=== PATIENT | male | born 1965 | race African-American/Black ===

== ENCOUNTER 2016-10-12 09:03 | Day surgery (SDC) | payer BC, MEDICARE ==
[2016-10-05 11:42] LABS: HEMATOCRIT 37.6 % (37.9-51.0); HEMOGLOBIN 12.6 g/dL (13.5-17.0); HGB HCT DIFFERENCE 0.2; MEAN CORPUSCULAR HGB CONC 33.6 g/dL (32.0-36.0); MEAN CORPUSCULAR VOLUME 83 fl (80-97); RED BLOOD COUNT 4.51 10^6/uL (4.35-5.55); RED CELL DISTRIBUTION WIDTH 13.7 % (11.5-14.0); WHITE BLOOD COUNT 4.9 10^3/uL (4.0-10.5)
[2016-10-05 12:03] LABS: ANION GAP 8 (5-19); BLOOD UREA NITROGEN 19 mg/dL (7-20); CALCIUM 9.2 mg/dL (8.4-10.2); CARBON DIOXIDE 29 mmol/L (22-30); CHLORIDE 107 mmol/L (98-107); CREATININE RESULT 1.23 mg/dL (0.52-1.25); GLUCOSE 80 mg/dL (75-110); POTASSIUM 4.5 mmol/L (3.6-5.0); SODIUM 144.3 mmol/L (137-145)
--- NOTE | 2016-10-05 19:13 | EKG REPORT ---
SEVERITY:- NORMAL ECG - SINUS RHYTHM : Confirmed by: Redd Paz MD 05-Oct-2016 19:13:07
[~2016-10-12 09:03] MED LIST: BUPIVACAINE HCL 0.25 % INJ/PF (2.5 MG/1 ML) 30 ML VIAL ONE; CEFAZOLIN 1 GM/D5W RTU 1 GM/50 ML RTUPB IV PRN; GLYCOPYRROLATE INJ 0.4 MG/2 ML VIAL ONE; LACTATED RINGERS 1000 ML IV PRN; LIDOCAINE 0.5% INJ-PF (5 MG/ML) 50 ML SDV SUBCUT PRN; LIDOCAINE 2% INJ-PF (20 MG/ML) 10 ML AMPUL ONE; METOCLOPRAMIDE HCL INJ/PF 10 MG/2 ML SDV ONE; NEOSTIGMINE METHYLSULFATE 10 MG/10 ML VIAL ONE; ONDANSETRON HCL INJ/PF 4 MG/2 ML SDV ONE; ROCURONIUM BROMIDE INJ 50 MG/5 ML VIAL IV ONE; SUCCINYLCHOLINE CHLORIDE INJ 200 MG/10 ML VIAL ONE
[2016-10-12] MEDS ORDERED: FENTANYL CITRATE INJ/PF 250 MCG/5 ML AMPULE ONE (10:11)
[2016-10-12] MEDS ORDERED: ACETAMINOPHEN 100 ML IV ONE (10:12)
[2016-10-12] MEDS ORDERED: MORPHINE SULFATE 10 MG/ML INJ ONE (10:12)
[2016-10-12] MEDS ORDERED: PROPOFOL INJ 200 MG/20 ML VIAL IV ONE (10:12)
[2016-10-12] MEDS ORDERED: MIDAZOLAM 2 MG/2 ML INJ ONE (10:35)
[2016-10-12] MEDS ORDERED: KETOROLAC TROMETHAMINE 60 MG/2 ML SDV IM PRN (12:04)
[2016-10-12] MEDS ORDERED: OXYCODONE-ACETAMINOPHEN 5-325 MG TABLET PO PRN (12:04)
[2016-10-12] MEDS ORDERED: ONDANSETRON HCL INJ/PF 4 MG/2 ML SDV IV PRN (12:04)
[2016-10-12] MEDS ORDERED: RINGERS SOLUTION,LACTATED 1,000 ML IV PRN (12:04)
[2016-10-12] MEDS ORDERED: MORPHINE SULFATE 10 MG/ML INJ IV PRN (12:04)
--- NOTE | 2016-10-12 12:04 | Operative Report ---
Operative Report DATE OF SURGERY: 10/12/16 PREOPERATIVE DIAGNOSIS: Umbilical hernia POSTOPERATIVE DIAGNOSIS: Same OPERATION: Primary umbilical herniorrhaphy, laparoscopic, with Parietex mesh reinforcement, 9 cm patch SURGEON: PAULIE AGUILAR HOUSING MANAGER: HADLEY STARK ANESTHESIA: GA TISSUE REMOVED OR ALTERED: None COMPLICATIONS: none ESTIMATED BLOOD LOSS: scant INTRAOPERATIVE FINDINGS: See below PROCEDURE: Patient was taken from the preoperative holding area to the main operating room where general anesthesia was induced. A Mayo catheter was inserted as the patient did not void prior to induction. Arms were abducted, the abdomen was exposed, prepped and draped in sterile fashion. Surgical plan and surgical time out conducted. We approached the anterior abdominal wall by making a small incision with the 11 blade in the patient's right far lateral wall. A Veress needle was inserted in the perineal cavity, pneumoperitoneum was established, Veress needle removed , and a 5 mm port was inserted and a 5 mm flexible scope was inserted. Under direct visualization 2 additional 5 mm ports were placed one in the left upper quadrant one in the left lower quadrant. Of note there was no evidence of intra -abdominal adhesions, or hernia related to the patient's previous anterior abdominal wall paramedian incision. There was a small umbilical hernia. There was incarcerated retroperitoneal fat which was removed using a combination of blunt grasper and cautery dissection. Small pieces of debrided fat were left on the omentum. At this point we assessed the defect which is approximately 1-1/2-2 cm in diameter. To close the defect primarily using horizontally oriented [id number] #1 PDS suture and the disposable suture passer. The suture was placed after all neck in the umbilical skin. This single suture closed the fascial defect. We now brought onto the field a 9 cm parietex mesh, placed 4 sutures at the 12, 3, 6, 9:00 positions with a #1 PDS suture. The mesh was rolled, brought through the anterior abdominal wall at the right-sided port site incision and then unrolled. The mesh was brought up to the anterior abdominal wall using the disposable suture passer at the 12, 3, 6, and 9:00 positions. We then reinforced the mesh secured to the anterior abdominal wall using the Suretac stapler. Concluding photos were taken. There was no evidence of bleeding or visceral injury We felt the operation was complete. Sponge counts correct. All ports were removed under direct visualization and pneumoperitoneum evacuated wounds closed with 3-0 Vicryl benzoin Steri-Strips, and quarter percent Marcaine applied to the incisions. Patient tolerated the procedure well, extubated and taken to recovery stable condition. The physician personalized living assistant, Ms. Stark, provided assistance during this case by: Assisting and port insertion, retracting tissue, instillation of local anesthesia and closure of skin incisions.
--- NOTE | 2016-10-12 12:09 | PDOC DISCHARGE SUMMARY ---
Discharge Summary (SDC) - Discharge Final Diagnosis: Umbilical hernia Date of Surgery: 10/12/16 Discharge Date: 10/12/16 Condition: Good Treatment or Instructions: [facility] [address], [place] [address] Discharge Instructions: Laparoscopic Surgery 1. General Information: a. DO NOT DRIVE a car or operate dangerous machinery for 3-4 days or while taking narcotic pain pills. b. DO NOT consume alcohol, tranquilizers, sleeping medications or any non- prescribed medications for 24 hours unless approved by your doctor or as long as taking narcotic prescription medications. c. DO NOT make important decisions or sign any important papers for the first 24 hours after surgery. d. When discharged home the same day of surgery have a responsible person with you for the first night. 2. Activity Restrictions: 2 weeks. a. NO heavy lifting, straining abdominal muscles, bending over a lot, yard work, house work, or sports for [address] for 3-4 days or while taking Percocet . c. It is fine to go for walks, up and down steps, ride in a car. d. Elevate your head when sleeping/resting. 3. Treatment: a. You may shower 24 hours after surgery, no baths or swimming for 2 weeks. Remove band-aids or dressings before shower but leave paper strips (steri-strips ) on the skin to fall off on their own. If still on at postoperative visit they will be removed then. b. Drainage of fluid or blood is not unusual from an incision. If occurs, you can clean with peroxide and cotton ball daily and cover with dry gauze until the wound seals. c. If a lot of bleeding occurs, you can hold pressure with a gauze or cloth over the site for 10 minutes and it will usually stop. If bleeding continues you will need to call for possible evaluation in office or emergency room. 4. Medications: a. Percocet may be taken for pain as needed, one or two tablets every 4-6 hours. Stop the narcotic when able since you cannot take it and drive, and they cause constipation. You may switch to plain Tylenol, Advil or Aleve as you transition from the narcotic. Many adults find good pain relief with Advil 600- 800 mg three times a day with meals. This can cause indigestion, ulcers, and kidney problems with long-term use. b. You should resume all normal medications unless a change is specified by your doctors. c. Begin with clear liquids and may progress to your normal diet if not nauseated. No high fat, high protein foods the day of surgery. Normal diet 6. The following may occur after laparoscopic surgery: a. Shoulder or upper back ache from retained gas that should resolve in 1-2 days b. Soreness and bruising at incision sites will resolve with time. c. Scrotal swelling (labia in women) and bruising is often seen after hernia surgery. d. Sore throat e. Fatigue may last days to weeks. f. Difficulty urinating may occur and may need to come into emergency room for urinary catheter placement. 7. Notify Physician If: a. Worsening or pain not improved with pain medication b. Persistent nausea and vomiting c. Fever above 101 d. Persistent bleeding or swelling at operative site e. Unable to urinate and uncomfortable bladder 6-8 hours after surgery 8..Follow Up Care: a. Schedule a follow up appointment with your doctor for 2 weeks. In the event of any postoperative problems or questions or you may call the office during business hours or the On-Call physician evenings and weekends at [facility]. [facility] I understand the instructions for my postoperative care as described above and a copy has been given to me. Patient/Significant Other Witness Date Prescriptions: Oxycodone HCl/Acetaminophen [Percocet 5-325 mg Tablet] 1 tab PO ASDIR PRN #15 tab PRN Reason: Discharge Diet: As Tolerated Discharge Activity: No Lifting Over 10 Pounds Home Care Assistance: None Needed Report the Following to Your Physician Immediately: Shortness of Breath, Increase in Pain, Fever over 101 Degrees
[2016-10-12] MEDS: HYDROMORPHONE HCL INJ/PF 2 MG/ML AMPULE ONE ×3 (12:57→13:25)
--- NOTE | 2016-10-12 13:53 | EKG REPORT ---
SEVERITY:- BORDERLINE ECG - SINUS RHYTHM PROBABLE LEFT ATRIAL ABNORMALITY : Confirmed by: Roly Felton 12-Oct-2016 13:52:41
[2016-10-12 15:13] VITALS: BP 118/72
== END 2016-10-12 15:05 | disposition home or self-care (01) ==
LOC: OROUT 09:03
PROVIDERS: ATTEND Surgery
PROC: 0WUF4JZ Supplement Abdominal Wall with Synthetic Substitute, Percutaneous Endoscopic Approach (ICD-10-PCS; principal; 2016-10-12 10:30)
DX: K42.9 Umbilical hernia without obstruction or gangrene (principal); Z21 Asymptomatic human immunodeficiency virus [HIV] infection status; N40.0 Benign prostatic hyperplasia without lower urinary tract symptoms; I10 Essential (primary) hypertension; Z86.711 Personal history of pulmonary embolism; Z87.891 Personal history of nicotine dependence; Z79.899 Other long term (current) drug therapy
CPT/HCPCS: 93005 ×2; 36415 ×2; 84132; 85027; 80048; 93010 ×2; 49652; C1781; J2250; J0690; J3490 ×2; J3010; J2765; J2270; J1170; J0330; J2405; J2704; J0131; 752

== ENCOUNTER 2016-10-18 13:14 | Emergency (ER) | payer BC, MEDICARE ==
[2016-10-18] MEDS ORDERED: LIDOCAINE 1% INJ-PF (10 MG/ML) 30 ML SDV INJ ONE (13:25)
[2016-10-18] MEDS ORDERED: DIPH/PERTUSS(ACELL)/TETANUS VAC/PF 0.5 ML SYR (>=10YO) IM ONE (13:28)
[2016-10-18] MEDS ORDERED: AMOXICILLIN TR/POT CLAVULANATE 500-125 MG TAB PO ONE (13:28)
[2016-10-18] MEDS ORDERED: IBUPROFEN 800 MG TABLET PO ONE (13:29)
--- NOTE | 2016-10-18 13:31 | ER Document Report ---
HPI - HPI Patient complains to provider of: foreign body Pain Level: 3 Context: Patient is a 51-year-old male presents emergency Department complaining of foreign body stuck in the plantar surface of his right third toe. Patient states that he was standing up in his room when he stepped on a fishhook this morning. He states he tried to rotated through to get it out but that it was not able to rotate through. He states he cut the hook with wire cutters and came to the emergency department for extraction. Does not know when his last tetanus shot was. PMH: + HIV - DERM Skin Color: Normal Past Medical History - Social History Smoking Status: Never Smoker Family History: Reviewed & Not Pertinent - Past Medical History Cardiac Medical History: Reports: Hx Hypertension, Hx Pulmonary Embolism Denies: Hx Coronary Artery Disease, Hx Heart Attack Pulmonary Medical History: Denies: Hx Asthma, Hx Bronchitis, Hx COPD, Hx Pneumonia, Hx Tuberculosis Neurological Medical History: Denies: Hx Cerebrovascular Accident, Hx Seizures Renal/ Medical History: Reports: Hx Benign Prostatic Hyperplasia. Denies: Hx Peritoneal Dialysis Musculoskeltal Medical History: Denies Hx Arthritis Psychiatric Medical History: Denies: Hx Depression Past Surgical History: Reports: Hx Orthopedic Surgery - left ankle, back x3, Hx Tonsillectomy - Immunizations Hx Diphtheria, Pertussis, Tetanus Vaccination: Yes Vertical Provider Document - CONSTITUTIONAL Agree With Documented VS: Yes Exam Limitations: No Limitations General Appearance: WD/WN, No Apparent Distress - INFECTION CONTROL TRAVEL OUTSIDE OF THE [place]. IN LAST 30 DAYS: No - RESPIRATORY O2 Sat by Pulse Oximetry: 99 - MUSCULOSKELETAL/EXTREMETIES Musculoskeletal/Extremeties: MAEW, FROM, Tender - At the entry wound of the fishhook, No Edema. negative: Eccymosis - NEURO Level of Consciousness: Awake, Alert, Appropriate Motor/Sensory: No Motor Deficit, No Sensory Deficit - DERM Integumentary: Warm, Dry, No Rash Notes: Anton in the plantar aspect of the right third toe. Minimal bleeding. Course - Re-evaluation Re-evalutation: 10/18/16 14:41 Area in size and fishhook removed. Patient tolerated the procedure well. Submerged in Betadine for 5 minutes and cleaned with normal saline and alcohol dressed with sterile bandage. Discussed signs and symptoms to be aware to return the emergency Department. Can follow up with his primary care physician - Vital Signs Vital signs: Temp Pulse Resp BP Pulse Ox 98.1 F 85 16 140/83 H 99 10/18/16 13:18 10/18/16 13:18 10/18/16 13:18 10/18/16 13:18 10/18/16 13:18 - Diagnostic Test Radiology reviewed: Image reviewed Discharge - Discharge Clinical Impression: Foreign body Condition: Good Disposition: HOME, SELF-CARE Instructions: Removal of Subcutaneous Foreign Object ([facility]) Prescriptions: Cephalexin Monohydrate [Keflex 500 mg Capsule] 500 mg PO BID 5 Days Ciprofloxacin HCl [Cipro 500 mg Tablet] 500 mg PO BID #20 tablet Doxycycline Hyclate 100 mg PO BID #20 capsule Forms: Elevated Blood Pressure
[2016-10-18] MEDS ORDERED: CIPROFLOXACIN HCL 500 MG TABLET PO ONE (14:09)
[2016-10-18] MEDS ORDERED: DOXYCYCLINE HYCLATE 100 MG TABLET PO ONE (14:09)
[2016-10-18] MEDS ORDERED: CEPHALEXIN 500 MG CAPSULE PO ONE (14:10)
[2016-10-18 14:48] VITALS: BP 135/75
== END 2016-10-18 14:48 | disposition home or self-care (01) ==
LOC: ER 13:14
DX: S91.144A Puncture wound with foreign body of right lesser toe(s) without damage to nail, initial encounter (principal); W26.8XXA Contact with other sharp object(s), not elsewhere classified, initial encounter; W45.8XXA Other foreign body or object entering through skin, initial encounter; Y93.89 Activity, other specified; Y92.008 Other place in unspecified non-institutional (private) residence as the place of occurrence of the external cause; I10 Essential (primary) hypertension; Z86.711 Personal history of pulmonary embolism
CPT/HCPCS: 90471; 90715; 99283

== ENCOUNTER 2016-11-23 08:20 | Emergency (ER) | payer BC, MEDICARE ==
--- NOTE | 2016-11-23 08:44 | EKG REPORT ---
SEVERITY:- NORMAL ECG - SINUS RHYTHM : Confirmed by: Leslye Larson MD 23-Nov-2016 08:43:10
[2016-11-23] MEDS ORDERED: ASPIRIN 81 MG TABLET, CHEWABLE PO ONE (09:00)
[2016-11-23] MEDS ORDERED: NORMAL SALINE 1000 ML 1,000 ML IV ONE ×2 (09:01)
[2016-11-23 09:26] LABS: ABSOLUTE EOSINOPHILS # (AUTO) 0.1 10^3/uL (0.0-0.6); ABSOLUTE LYMPHOCYTES (AUTO) 1.4 10^3/uL (0.5-4.7); ABSOLUTE MONOCYTES (AUTO) 0.6 10^3/uL (0.1-1.4); ABSOLUTE NEUT (AUTO) 2.7 10^3/uL (1.7-8.2); BASOPHILS % (AUTO) 0.2 % (0-2); EOSINOPHILS % (AUTO) 1.7 % (0-6); HEMATOCRIT 40.8 % (37.9-51.0); HEMOGLOBIN 13.4 g/dL (13.5-17.0); HGB HCT DIFFERENCE -0.6; LYMPHOCYTES % (AUTO) 30.3 % (13-45); MEAN CORPUSCULAR HEMOGLOBIN 27.7 pg (27.0-33.4); MEAN CORPUSCULAR HGB CONC 32.8 g/dL (32.0-36.0); MEAN CORPUSCULAR VOLUME 85 fl (80-97); MONOCYTES % (AUTO) 11.7 % (3-13); RED BLOOD COUNT 4.83 10^6/uL (4.35-5.55); RED CELL DISTRIBUTION WIDTH 14.4 % (11.5-14.0); SEGMENTED NEUTROPHILS % (AUTO) 56.1 % (42-78); WHITE BLOOD COUNT 4.7 10^3/uL (4.0-10.5)
[2016-11-23 09:31] LABS: PROTHROMBIN TIME 13.7 SEC (11.4-15.4)
[2016-11-23 09:43] LABS: ALANINE AMINOTRANSFERASE 60 U/L (21-72); ALBUMIN 3.9 g/dL (3.5-5.0); ALKALINE PHOSPHATASE 64 U/L (38-126); ANION GAP 11 (5-19); ASPARTATE AMINO TRANSFERASE 47 U/L (17-59); BILIRUBIN,DIRECT 0.2 mg/dL (0.0-0.4); BILIRUBIN,TOTAL 0.8 mg/dL (0.2-1.3); BLOOD UREA NITROGEN 23 mg/dL (7-20); CALCIUM 9.3 mg/dL (8.4-10.2); CARBON DIOXIDE 25 mmol/L (22-30); CHLORIDE 107 mmol/L (98-107); CREATINE KINASE 1423 U/L (55-170); CREATININE RESULT 1.17 mg/dL (0.52-1.25); GLUCOSE 106 mg/dL (75-110); LIPASE 147.5 U/L (23-300); MAGNESIUM 1.9 mg/dL (1.6-2.3); POTASSIUM 4.3 mmol/L (3.6-5.0); SODIUM 143.2 mmol/L (137-145); TOTAL PROTEIN 7.6 g/dL (6.3-8.2)
[2016-11-23 09:55] LABS: TROPONIN I < 0.012 ng/mL
--- NOTE | 2016-11-23 10:58 | RADIOLOGY REPORT (SQ) ---
EXAM DESCRIPTION: CTA CHEST COMPLETED DATE/TIME: 11/23/2016 9:51 am REASON FOR STUDY: hx of pe cp today recent surgery COMPARISON: [address] angio chest exams since 06/06/2013 TECHNIQUE: CT scan of the chest performed using helical scanning technique with dynamic intravenous contrast injection. Images reviewed with lung, soft tissue and bone windows. Reconstructed coronal and sagittal MPR images reviewed. Additional 3 dimensional post-processing performed to develop Maximal Intensity Projection images (MS P). All images stored on PACS. All CT scanners at this facility use dose modulation, iterative reconstruction, and/or weight based d osing when appropriate to reduce radiation dose to as low as reasonably achievable (ALARA). [facility]: Dose Right [facility]: CareDose [facility]: Dose Right [facility]: Teradose 4D [facility]: Designer Material CONTRAST TYPE AND DOSE: contrast/concentration: Isovue 370.00 mg/ml; Total Contrast Delivered: 83.0 ml; Total Saline Delivered: 100.0 ml RENAL FUNCTION: Creatinine deferred by ER doctor RADIATION DOSE: Up-to-date CT equipment and radiation dose reduction techniques were employed. CTDIv ol: 16.5 - 18.9 mGy. DLP: 794 mGy-cm. . LIMITATIONS: None. FINDINGS: LUNGS AND PLEURA: No masses, infiltrates, pneumothorax. No pleural effusions, calcificati ons. AORTA AND GREAT VESSELS: No aneurysm or dissection. HEART: No pericardial effusion. PULMONARY ARTERIES: No emboli visualized in the main pulmonary arteries or the segmental branches. HILAR AND MEDIASTINAL STRUCTURES: No identified masses or abnormal nodes. HARDWARE: None in the chest. UPPER ABDOMEN: Benign focal fat under the right hemidiaphragm, 2.5 cm in diameter. THYROID AND OTHER SOFT TISSUES: No masses. No adenopathy. BONES: No acute or significant finding. 3D MIPS: Confirm above findings. OTHER: No other significant finding. IMPRESSION: NORMAL CTA OF THE CHEST. NO PULMONARY EMBOLI. TECHNICAL DOCUMENTATION: JOB ID: [id number] Quality ID # [id number]: Final reports with documentation of one or more dose reduction techniques (e.g., Au tomated exposure control, adjustment of the mA and/or kV according to patient size, use of iterative reconstruction technique) 2010 [employer]- All Rights Reserved
--- NOTE | 2016-11-23 12:18 | ER Document Report ---
ED General - General Chief Complaint: Chest Pain Stated Complaint: CHEST PAIN Time Seen by Provider: 11/23/16 09:01 TRAVEL OUTSIDE OF THE U.[place]. IN LAST 30 DAYS: No - HPI Patient complains to provider of: Chest pain Notes: Patient coming in for evaluation of chest pain. Patient states history of PE in the past and was on Eliquis. Patient states the PE was thought to be due to hormone replacement testosterone. Patient otherwise states that chest pain started day prior to arrival sooner chest going to the right side. Patient denies any nausea vomiting fevers chills shortness of breath. Patient denies any recent travel. Patient denies any hormone use at this time. - Related Data Allergies/Adverse Reactions: testosterone Allergy (Verified 11/23/16 08:28) Pulmonary embolism Past Medical History - Social History Smoking Status: Unknown if Ever Smoked Family History: Reviewed & Not Pertinent Patient has suicidal ideation: No Patient has homicidal ideation: No - Past Medical History Cardiac Medical History: Reports: Hx Hypertension, Hx Pulmonary Embolism Denies: Hx Coronary Artery Disease, Hx Heart Attack Pulmonary Medical History: Denies: Hx Asthma, Hx Bronchitis, Hx COPD, Hx Pneumonia, Hx Tuberculosis Neurological Medical History: Denies: Hx Cerebrovascular Accident, Hx Seizures Renal/ Medical History: Reports: Hx Benign Prostatic Hyperplasia. Denies: Hx Peritoneal Dialysis Musculoskeltal Medical History: Denies Hx Arthritis Psychiatric Medical History: Denies: Hx Depression Past Surgical History: Reports: Hx Orthopedic Surgery - left ankle, back x3, Hx Tonsillectomy - Immunizations Hx Diphtheria, Pertussis, Tetanus Vaccination: Yes Review of Systems - Review of Systems Constitutional: No symptoms reported EENT: No symptoms reported Cardiovascular: Chest pain Respiratory: No symptoms reported Gastrointestinal: No symptoms reported Genitourinary: No symptoms reported Male Genitourinary: No symptoms reported Musculoskeletal: No symptoms reported Skin: No symptoms reported Hematologic/Lymphatic: No symptoms reported Neurological/Psychological: No symptoms reported -: Yes All other systems reviewed and negative Physical Exam - Vital signs Vitals: Temp Pulse Resp BP Pulse Ox 98.3 F 95 18 147/73 H 97 11/23/16 08:28 11/23/16 08:28 11/23/16 08:28 11/23/16 08:28 11/23/16 08:28 Interpretation: Normal - General General appearance: Appears well, Alert - HEENT Head: Normocephalic, Atraumatic Eyes: Normal Pupils: PERRL - Respiratory Respiratory status: No respiratory distress Chest status: Nontender Breath sounds: Normal Chest palpation: Normal - Cardiovascular Rhythm: Regular Heart sounds: Normal auscultation Murmur: No - Abdominal Inspection: Normal Distension: No distension Bowel sounds: Normal Tenderness: Nontender Organomegaly: No organomegaly - Back Back: Normal, Nontender - Extremities General upper extremity: Normal inspection, Nontender, Normal color, Normal ROM , Normal temperature General lower extremity: Normal inspection, Nontender, Normal color, Normal ROM , Normal temperature, Normal weight bearing. No: Otto's sign - Neurological Neuro grossly intact: Yes Cognition: Normal Orientation: AAOx4 [place] Coma Scale Eye Opening: Spontaneous [place] Coma Scale Verbal: Oriented [place] Coma Scale Motor: Obeys Commands Ever Coma Scale Total: 15 Speech: Normal Motor strength normal: LUE, RUE, LLE, RLE Sensory: Normal - Psychological Associated symptoms: Normal affect, Normal mood - Skin Skin Temperature: Warm Skin Moisture: Dry Skin Color: Normal Course - Re-evaluation Re-evalutation: 11/23/16 14:29 The patient has atypical chest pain as the patient's chest pain is not suggestive of pulmonary embolus, cardiac ischemia, aortic dissection, or other serious etiology. Given the extremely low risk of these diagnoses further testing and evaluation for these possibilities does not appear to be indicated at this time. The patient has been instructed to return if the symptoms worsen or change in any way. Patient UTI does not show any significant pathology. Patient does have elevation CK CK-MB however negative troponin. Chest pain ongoing for 24 hours filled this does rule patient out for any coronary disease. Patient's EKG also did not show any considered pathology. Unclear the patient's elevation CK other than [place] not drink enough water possibly signs of dehydration patient otherwise is very healthy and muscular patient is not on a statin. Patient was encouraged to drink plenty of water to stay hydrated follow-up with his primary care physician for repeat evaluation in approximately 1 week - Vital Signs Vital signs: Temp Pulse Resp BP Pulse Ox 98.3 F 95 18 147/73 H 97 11/23/16 08:28 11/23/16 08:28 11/23/16 08:28 11/23/16 08:28 11/23/16 08:28 - Laboratory Result Diagrams: 11/23/16 09:02 11/23/16 09:02 Laboratory results interpreted by me: 11/23/16 11/23/16 11/23/16 09:02 09:02 09:02 Hgb 13.4 L RDW 14.4 H BUN 23 H Creatine Kinase 1423 H CK-MB (CK-2) 25.50 H Discharge - Discharge Clinical Impression: Elevated CK Chest pain, unspecified Qualifiers: Chest pain type: unspecified Qualified Code(s): R07.9 - Chest pain, unspecified Condition: Good Disposition: HOME, SELF-CARE Instructions: Chest Wall Pain ([facility]), Chest Pain of Unclear Cause ([facility]) Additional Instructions: EKG lab work CT scan does not show any signs of heart attack or pulmonary embolism at this time. He does show elevation and result call your CK or creatinine kinase. This laboratory value show signs of muscle breakdown which can occur after vigorous activity and can build up with dehydration. It is very important that she stay well-hydrated and that you would need to continue to flush this and will I am out of your bloodstream to prevent kidney failure. At this time this is not something that she will need to be hospitalized for he will need to make sure that you stay well-hydrated Referrals: USMAN SHARMA MD [Primary Care Provider] - Follow up in 1 week
[2016-11-23 12:20] VITALS: BP 130/85
== END 2016-11-23 12:30 | disposition home or self-care (01) ==
LOC: ER 08:20
DX: R07.89 Other chest pain (principal); R74.8 Abnormal levels of other serum enzymes; I10 Essential (primary) hypertension; Z86.711 Personal history of pulmonary embolism; Z88.8 Allergy status to other drugs, medicaments and biological substances
CPT/HCPCS: 93005; 99285; 96360; 96361; 36415; 82553; 82550; 83690; 83735; 85025; 85610; 80053; 84484; 71275; 93010; J7030

== ENCOUNTER → 2017-07-12 | Outpatient (CLI) | payer BC, MEDICARE ==
[2017-07-13 11:42] LABS: PROSTATE SPECIFIC ANTIGEN 4.2 ng/mL (0.0-4.0); PSA % FREE 12.4 % (.); PSA FREE 0.52 ng/mL
== END ==
LOC: OD 10:24
PROVIDERS: ATTEND Urology
DX: R97.20 Elevated prostate specific antigen [PSA] (principal)
CPT/HCPCS: 36415; 84154

== ENCOUNTER 2017-08-18 10:18 | Emergency (ER) | payer BC, MEDICARE ==
--- NOTE | 2017-08-18 10:51 | ER Document Report ---
Addendum entered and electronically signed by LATIA BOATENG 08/18/17 10:56: [employer] Documentation - Scribe Written by Scribe:: Karyn Craft, 08/18/2017 10:56 acting as scribe for DrFe:: Alex Original Note: ED Medical Screen (RME) - General Mode of Arrival: Ambulatory Information source: Patient TRAVEL OUTSIDE OF THE [place]. IN LAST 30 DAYS: No <LATIA BOATENG - Last Filed: 08/18/17 10:56> <ALFA PENN - Last Filed: 08/18/17 17:07> - General Chief Complaint: Other Stated Complaint: PAINFUL URINATION Time Seen by Provider: 08/18/17 10:40 Notes: Patient is a 52 year old male who recently had a prostate biopsy 3 days ago presents to the emergency department complaining of multiple symptoms including headaches, subjective fevers, generalized body pain, painful urination, hematuria and blood in stool onset last night. Patient describes the blood in his stool and urine as bright red. Patient states he called his urologist, Dr. Mcneill this morning and they directed him to come to the emergency department. GENERAL: Alert, interacts well. No acute distress. HEAD: Normocephalic, Atraumatic. NECK: Full range of motion. Supple. Trachea midline. EXTREMITIES: Moves all four extremities spontaneously. PSYCH: Normal affect, normal mood. I have greeted and performed a rapid initial assessment of this patient. A comprehensive ED assessment and evaluation of the patient, analysis of test results and completion of the medical decision making process will be conducted by additional ED providers. (LATIA BOATENG) - Related Data Allergies/Adverse Reactions: testosterone Allergy (Verified 08/18/17 10:20) Pulmonary embolism Past Medical History - Social History Chew tobacco use (# tins/day): No Frequency of alcohol use: Rare Drug Abuse: None - Past Medical History Cardiac Medical History: Reports: Hx Hypertension, Hx Pulmonary Embolism Denies: Hx Coronary Artery Disease, Hx Heart Attack Pulmonary Medical History: Denies: Hx Asthma, Hx Bronchitis, Hx COPD, Hx Pneumonia, Hx Tuberculosis Neurological Medical History: Denies: Hx Cerebrovascular Accident, Hx Seizures Renal/ Medical History: Reports: Hx Benign Prostatic Hyperplasia. Denies: Hx Peritoneal Dialysis Musculoskeltal Medical History: Denies Hx Arthritis Psychiatric Medical History: Denies: Hx Depression Past Surgical History: Reports: Hx Orthopedic Surgery - left ankle, back x3, Hx Tonsillectomy - Immunizations Hx Diphtheria, Pertussis, Tetanus Vaccination: Yes <LATIA BOATENG - Last Filed: 08/18/17 10:56> - Vital signs Vitals: Temp Pulse Resp BP Pulse Ox 97.9 F 77 18 132/83 H 98 08/18/17 10:22 08/18/17 10:22 08/18/17 10:22 08/18/17 10:22 08/18/17 10:22 Course - Laboratory Result Diagrams: 08/18/17 11:05 08/18/17 11:05 <ALFA PENN - Last Filed: 08/18/17 17:07> - Vital Signs Vital signs: Temp Pulse Resp BP Pulse Ox 98.7 F 76 17 114/63 99 08/18/17 15:19 08/18/17 15:19 08/18/17 12:41 08/18/17 15:19 08/18/17 15:19 - Laboratory Laboratory results interpreted by me: 08/18/17 08/18/17 08/18/17 11:05 11:05 11:05 WBC 14.0 H RDW 14.4 H Absolute Neutrophils 10.2 H Absolute Monocytes 1.6 H Glucose 119 H Total Bilirubin 1.5 H Urine Protein 30 H Urine Blood LARGE H Urine Nitrite POSITIVE H Ur Leukocyte Esterase LARGE H Doctor's Discharge <LATIA BOATENG - Last Filed: 08/18/17 10:56> <ALFA PENN - Last Filed: 08/18/17 17:07> - Discharge Clinical Impression: History of prostate biopsy Urinary tract infection Qualifiers: Urinary tract infection type: site unspecified Hematuria presence: with hematuria Qualified Code(s): N39.0 - Urinary tract infection, site not specified Condition: Good Disposition: HOME, SELF-CARE Instructions: Ciprofloxacin ([facility]), Rocephin ([facility]), Urinary Tract Infection ([facility] ) Additional Instructions: Return to the emergency room if he get a fever chills sweats myalgias despite these antibiotics. Urine culture is pending Drink plenty of fluids Prescriptions: Ciprofloxacin HCl [Cipro 500 mg Tablet] 500 mg PO BID #20 tablet Forms: Return to Work Referrals: WIN LANGE MD [PETE OSULLIVAN] - Follow up as needed
[2017-08-18 11:34] LABS: APPEARANCE,URINE CLOUDY; BILIRUBIN,URINE NEGATIVE (NEGATIVE); GLUCOSE, URINE NEGATIVE (NEGATIVE); KETONES,URINE NEGATIVE (NEGATIVE); LEUKOCYTE ESTERASE,URINE LARGE (NEGATIVE); NITRITE,URINE POSITIVE (NEGATIVE); PROTEIN,URINE 30 mg/dL (NEGATIVE); URINE SPECIFIC GRAVITY 1.032; UROBILINOGEN,URINE NEGATIVE mg/dL (<2.0)
[2017-08-18 11:35] LABS: ABSOLUTE LYMPHOCYTES (AUTO) 2.1 10^3/uL (0.5-4.7); ABSOLUTE MONOCYTES (AUTO) 1.6 10^3/uL (0.1-1.4); ABSOLUTE NEUT (AUTO) 10.2 10^3/uL (1.7-8.2); BASOPHILS % (AUTO) 0.1 % (0-2); EOSINOPHILS % (AUTO) 0.1 % (0-6); HEMATOCRIT 41.1 % (37.9-51.0); HEMOGLOBIN 13.7 g/dL (13.5-17.0); LYMPHOCYTES % (AUTO) 15.3 % (13-45); MEAN CORPUSCULAR HEMOGLOBIN 28.2 pg (27.0-33.4); MEAN CORPUSCULAR HGB CONC 33.3 g/dL (32.0-36.0); MEAN CORPUSCULAR VOLUME 85 fl (80-97); MONOCYTES % (AUTO) 11.4 % (3-13); PLATELET COUNT 207 10^3/uL (150-450); RED BLOOD COUNT 4.87 10^6/uL (4.35-5.55); RED CELL DISTRIBUTION WIDTH 14.4 % (11.5-14.0); SEGMENTED NEUTROPHILS % (AUTO) 73.1 % (42-78); TOTAL CELLS COUNTED % (AUTO) 100 %
[2017-08-18 11:41] LABS: COLOR,URINE YELLOW
[2017-08-18 11:46] LABS: ALANINE AMINOTRANSFERASE 56 U/L (21-72); ALBUMIN 3.8 g/dL (3.5-5.0); ALKALINE PHOSPHATASE 56 U/L (38-126); ANION GAP 9 (5-19); ASPARTATE AMINO TRANSFERASE 31 U/L (17-59); BILIRUBIN,DIRECT 0.2 mg/dL (0.0-0.4); BILIRUBIN,TOTAL 1.5 mg/dL (0.2-1.3); BLOOD UREA NITROGEN 16 mg/dL (7-20); CARBON DIOXIDE 27 mmol/L (22-30); CHLORIDE 105 mmol/L (98-107); GLUCOSE 119 mg/dL (75-110); POTASSIUM 3.9 mmol/L (3.6-5.0); SODIUM 141.3 mmol/L (137-145); TOTAL PROTEIN 6.8 g/dL (6.3-8.2)
--- NOTE | 2017-08-18 12:13 | ER Document Report ---
ED General - General Chief Complaint: Other Stated Complaint: PAINFUL URINATION Time Seen by Provider: 08/18/17 10:40 Mode of Arrival: Ambulatory Notes: 52 yo male c/o dysuria, blood in urein and dark blood from rectum after prostate bipesy's on monday. Was taking cipro until . fever, chillls, aches yesterday, feels better today. TRAVEL OUTSIDE OF THE [place] IN LAST 30 DAYS: No - Related Data Allergies/Adverse Reactions: testosterone Allergy (Verified 08/18/17 10:20) Pulmonary embolism Past Medical History - General Information source: Patient - Social History Smoking Status: Former Smoker Chew tobacco use (# tins/day): No Frequency of alcohol use: Rare Drug Abuse: None Lives with: Family Family History: Reviewed & Not Pertinent Patient has suicidal ideation: No Patient has homicidal ideation: No - Past Medical History Cardiac Medical History: Reports: Hx Hypertension, Hx Pulmonary Embolism Renal/ Medical History: Reports: Hx Benign Prostatic Hyperplasia. Denies: Hx Peritoneal Dialysis Past Surgical History: Reports: Hx Orthopedic Surgery - left ankle, back x3, Hx Tonsillectomy - Immunizations Hx Diphtheria, Pertussis, Tetanus Vaccination: Yes Review of Systems - Review of Systems Constitutional: No symptoms reported EENT: No symptoms reported Cardiovascular: No symptoms reported Respiratory: No symptoms reported Gastrointestinal: No symptoms reported Genitourinary: No symptoms reported Male Genitourinary: See HPI Musculoskeletal: No symptoms reported Skin: No symptoms reported Hematologic/Lymphatic: No symptoms reported Neurological/Psychological: No symptoms reported Physical Exam - Vital signs Vitals: Temp Pulse Resp BP Pulse Ox 97.9 F 77 18 132/83 H 98 08/18/17 10:22 08/18/17 10:22 08/18/17 10:22 08/18/17 10:22 08/18/17 10:22 Interpretation: Normal - General General appearance: Appears well, Alert - HEENT Head: Normocephalic, Atraumatic Eyes: Normal Pupils: PERRL Neck: Supple - Respiratory Respiratory status: No respiratory distress Chest status: Nontender Breath sounds: Normal Chest palpation: Normal - Cardiovascular Rhythm: Regular Heart sounds: Normal auscultation Murmur: No - Abdominal Inspection: Normal Distension: No distension Bowel sounds: Normal Tenderness: Nontender. No: Tender Organomegaly: No organomegaly - Back Back: Normal, Nontender. No: CVA tenderness - Extremities General upper extremity: Normal inspection, Nontender, Normal color, Normal ROM , Normal temperature General lower extremity: Normal inspection, Nontender, Normal color, Normal ROM , Normal temperature, Normal weight bearing. No: Otto's sign - Neurological Neuro grossly intact: Yes Cognition: Normal Orientation: AAOx4 Ever Coma Scale Eye Opening: Spontaneous [place] Coma Scale Verbal: Oriented Ever Coma Scale Motor: Obeys Commands Ever Coma Scale Total: 15 Speech: Normal Motor strength normal: LUE, RUE, LLE, RLE Sensory: Normal - Psychological Associated symptoms: Normal affect, Normal mood - Skin Skin Temperature: Warm Skin Moisture: Dry Skin Color: Normal Course - Re-evaluation Re-evalutation: 08/20/17 11:13 spoke with pt over the phone and changed the antibiotic to keflex 500mg qid #40 called to [facility] [phone]. He will stop by ER to get copy of the culture result for the urology follow up on monday. The Rocephin he was given in the ER was sensitive. Pt feels fine today. - Vital Signs Vital signs: Temp Pulse Resp BP Pulse Ox 98.7 F 76 17 114/63 99 08/18/17 15:19 08/18/17 15:19 08/18/17 12:41 08/18/17 15:19 08/18/17 15:19 - Laboratory Result Diagrams: 08/18/17 11:05 08/18/17 11:05 Laboratory results interpreted by me: 08/18/17 08/18/17 08/18/17 11:05 11:05 11:05 WBC 14.0 H RDW 14.4 H Absolute Neutrophils 10.2 H Absolute Monocytes 1.6 H Glucose 119 H Total Bilirubin 1.5 H Urine Protein 30 H Urine Blood LARGE H Urine Nitrite POSITIVE H Ur Leukocyte Esterase LARGE H Discharge - Discharge Clinical Impression: History of prostate biopsy Urinary tract infection Qualifiers: Urinary tract infection type: site unspecified Hematuria presence: with hematuria Qualified Code(s): N39.0 - Urinary tract infection, site not specified Condition: Good Disposition: HOME, SELF-CARE Instructions: Ciprofloxacin ([facility]), Rocephin ([facility]), Urinary Tract Infection ([facility] ) Additional Instructions: Return to the emergency room if he get a fever chills sweats myalgias despite these antibiotics. Urine culture is pending Drink plenty of fluids Prescriptions: Ciprofloxacin HCl [Cipro 500 mg Tablet] 500 mg PO BID #20 tablet Forms: Return to Work Referrals: WIN LANGE MD [HOROLOGIST] - Follow up as needed
[2017-08-18] MEDS ORDERED: CEFTRIAXONE INJ 1000 MG VIAL IV ONE ×2 (12:14→13:25)
[2017-08-18] MEDS ORDERED: NORMAL SALINE 1000 ML 1,000 ML IV ONE (12:14)
[2017-08-18] MEDS ORDERED: CIPROFLOXACIN 400 MG/D5W RTU 400 MG/200 ML RTUPB IV ONE (12:15)
[2017-08-18 12:27] LABS: INTERNATIONAL RATION (INR) 1.12; PARTIAL THROMBOPLASTIN TIME 35.7 SEC (23.5-35.8); PROTHROMBIN TIME 15.2 SEC (11.4-15.4)
[2017-08-18] MEDS ORDERED: ACETAMINOPHEN 325 MG TABLET PO ONE (13:05)
[2017-08-18 15:20] VITALS: BP 114/63
== END 2017-08-18 15:27 | disposition home or self-care (01) ==
LOC: ER 10:18
DX: N39.0 Urinary tract infection, site not specified (principal); R30.9 Painful micturition, unspecified; I10 Essential (primary) hypertension; Z98.890 Other specified postprocedural states; Z87.891 Personal history of nicotine dependence
CPT/HCPCS: 99283; 96365; 96367; 36415; 87040; 87086; 85025; 85610; 85730; 87088; 80053; 81001; 87186; J0696; J7030; J0744

== ENCOUNTER → 2017-08-22 | Outpatient (CLI) | payer BC, MEDICARE ==
[2017-08-23 06:39] LABS: FOLLICLE STIMULATING HORMONE 4.5 mIU/mL (1.5-12.4); LUTEINIZING HORMONE 2.9 mIU/mL (1.7-8.6); PROLACTIN 7.2 ng/mL (4.0-15.2)
[2017-08-23 07:08] LABS: ESTRADIOL 43.9 pg/mL (7.6-42.6); SEX HORM BINDING GLOBULIN 41.8 nmol/L (19.3-76.4)
[2017-08-23 15:19] LABS: TESTOSTERONE FREE (DIRECT) 3.8 pg/mL (7.2-24.0)
== END ==
LOC: OD 10:47
PROVIDERS: ATTEND Urology
DX: R97.20 Elevated prostate specific antigen [PSA] (principal)
CPT/HCPCS: 36415; 82670; 83001; 83002; 84146; 84270; 84402; 84403

== ENCOUNTER 2017-09-06 09:40 | Observation (INO) | payer BC, MEDICARE ==
--- NOTE | 2017-09-06 10:57 | ER Document Report ---
ED Medical Screen (RME) - General Chief Complaint: Direct Admit/Private MD Stated Complaint: DIRECT ADMIT-NARROW COMPPLEX TACHYCARDIA Notes: RME DISCLOSURE I have seen this patient as part of a Rapid Medical Evaluation and, if applicable, placed any initially appropriate orders. The patient will be seen and fully evaluated, including a full history and physical exam, by a provider ( in Main ED or Fast Track) when a room becomes available. 52-year-old male sent here as a direct admit by his PCP here with complaints of right-sided chest pain and right leg pain similar to when he had his previous PE /DVT. In his PCP office his heart rate was elevated and he was sent here for admission. His EKG shows sinus tachycardia. TRAVEL OUTSIDE OF THE [place] IN LAST 30 DAYS: No - Related Data Allergies/Adverse Reactions: testosterone Allergy (Verified 09/06/17 09:58) Pulmonary embolism Past Medical History - Past Medical History Cardiac Medical History: Reports: Hx Hypertension, Hx Pulmonary Embolism Denies: Hx Coronary Artery Disease, Hx Heart Attack Pulmonary Medical History: Denies: Hx Asthma, Hx Bronchitis, Hx COPD, Hx Pneumonia, Hx Tuberculosis Neurological Medical History: Denies: Hx Cerebrovascular Accident, Hx Seizures Renal/ Medical History: Reports: Hx Benign Prostatic Hyperplasia. Denies: Hx Peritoneal Dialysis Musculoskeltal Medical History: Denies Hx Arthritis Psychiatric Medical History: Denies: Hx Depression Past Surgical History: Reports: Hx Orthopedic Surgery - left ankle, back x3, Hx Tonsillectomy - Immunizations Hx Diphtheria, Pertussis, Tetanus Vaccination: Yes Physical Exam - Vital signs Vitals: Temp Pulse Resp BP Pulse Ox 98.8 F 110 H 20 133/80 H 96 09/06/17 10:09/06/17 10:19 09/06/17 10:09/06/17 10:09/06/17 10:19 Course - Vital Signs Vital signs: Temp Pulse Resp BP Pulse Ox 98.8 F 110 H 20 133/80 H 96 09/06/17 10:19 09/06/17 10:19 09/06/17 10:19 09/06/17 10:19 09/06/17 10:19
--- NOTE | 2017-09-06 11:15 | ER Document Report ---
ED General - General Chief Complaint: Arrhythmia Stated Complaint: DIRECT ADMIT-NARROW COMPPLEX TACHYCARDIA Notes: Patient presents with palpitations racing heart onset this morning, rapid heart rate up to 140. Constant, resolved, severe. Associated diaphoresis but no nausea or chest pain. History of same. Patient was seen in the office of Dr. Reveles who was sent in here for admission. TRAVEL OUTSIDE OF THE [place] IN LAST 30 DAYS: No - Related Data Allergies/Adverse Reactions: testosterone Allergy (Verified 09/06/17 09:58) Pulmonary embolism Past Medical History - Social History Smoking Status: Never Smoker Family History: Reviewed & Not Pertinent - Past Medical History Cardiac Medical History: Reports: Hx Hypertension, Hx Pulmonary Embolism Denies: Hx Coronary Artery Disease, Hx Heart Attack Pulmonary Medical History: Denies: Hx Asthma, Hx Bronchitis, Hx COPD, Hx Pneumonia, Hx Tuberculosis Neurological Medical History: Denies: Hx Cerebrovascular Accident, Hx Seizures Renal/ Medical History: Reports: Hx Benign Prostatic Hyperplasia. Denies: Hx Peritoneal Dialysis Musculoskeltal Medical History: Denies Hx Arthritis Psychiatric Medical History: Denies: Hx Depression Past Surgical History: Reports: Hx Orthopedic Surgery - left ankle, back x3, Hx Tonsillectomy - Immunizations Hx Diphtheria, Pertussis, Tetanus Vaccination: Yes Review of Systems - Review of Systems Notes: REVIEW OF SYSTEMS GEN: Denies fever, chills, weight loss ENT: Denies sore throat, nasal discharge, ear pain EYES: Denies blurry vision, eye pain, discharge CV: Resolved palpitations RESP: Denies cough, shortness of breath, wheezing GI: Denies abdominal pain, nausea, vomiting, diarrhea MSK: Denies joint pain/swelling, edema, SKIN: Denies rash, skin lesions LYMPH: Denies swollen glands/lymph nodes NEURO: Denies headache, focal weakness or numbness, dizziness PSYCH: Denies depression, suicidal or homicidal ideation PHYSICAL EXAMINATION General: No acute distress, well-nourished Head: Atraumatic, normocephalic ENT: Mouth normal, oropharynx moist, no exudates or tonsillar enlargement Eyes: Conjunctiva normal, pupils equal, lids normal Neck: No JVD, supple, no guarding CVS: Normal rate, regular rhythm, no murmurs Resp: No resp distress, equal and normal breath sounds bilaterally GI: Nondistended, soft, no tenderness to palpation, no rebound or guarding Ext: No deformities, no edema, normal range of motion in upper and lower ext Back: No CVA or midline TTP Skin: No rash, warm Lymphatic: No lymphadeopathy noted Neuro: Awake, alert. Face symmetric. GCS 15. Physical Exam - Vital signs Vitals: Temp Pulse Resp BP Pulse Ox 98.8 F 110 H 20 133/80 H 96 09/06/17 10:19 09/06/17 10:19 09/06/17 10:19 09/06/17 10:19 09/06/17 10:19 Course - Re-evaluation Re-evalutation: 09/06/17 11:15 52-year-old male presents with resolved likely SVT based on preop evaluation. Patient was sent for direct admission but there are no beds and was diverted to the emergency department for stabilization and evaluation. He is currently in sinus rhythm with normal vital signs. EKG was interpreted. Labs are pending. Patient will be admitted to Dr. Reveles. Her Abdirizak has ordered a CTA which she will follow-up. 09/06/17 11:17 - Vital Signs Vital signs: Temp Pulse Resp BP Pulse Ox 98.8 F 110 H 20 133/80 H 96 09/06/17 10:19 09/06/17 10:19 09/06/17 10:19 09/06/17 10:19 09/06/17 10:19 - EKG Interpretation by [place] EKG shows normal: Sinus rhythm Rate: Tachycardia Rhythm: NSR Voltage: Increased voltage When compared to previous EKG there are: No significant change - Specifically no signs of preexcitation Discharge - Discharge Clinical Impression: Supraventricular tachycardia Condition: Fair Disposition: ADMITTED INPATIENT Admitting Provider: Abdirizak Unit Admitted: Telemetry
--- NOTE | 2017-09-06 11:47 | RADIOLOGY REPORT (SQ) ---
EXAM DESCRIPTION: CTA CHEST COMPLETED DATE/TIME: 09/06/2017 11:33 am REASON FOR STUDY: CP, hx of PE; eval PE COMPARISON: [address] chest exams since 2013, most recently 11/23/2016 TECHNIQUE: CT scan of the chest performed using helical scanning technique with dynamic intravenous contrast injection. Images reviewed with lung, soft tissue and bone windows. Reconstructed coronal and sagittal MPR images reviewed. Additional 3 dimensional post-processing performed to develop Maximal Intensity Projection images (ME P). All images stored on PACS. All CT scanners at this facility use dose modulation, iterative reconstruction, and/or weight based d osing when appropriate to reduce radiation dose to as low as reasonably achievable (ALARA). [facility]: Dose Right [facility]: CareDose [facility]: Dose Right [facility]: Teradose 4D [facility]: RescueTime CONTRAST TYPE AND DOSE: contrast/concentration: Isovue 370.00 mg/ml; Total Contrast Delivered: 83.0 ml; Total Saline Delivered: 90.0 ml Contrast bolus optimized for the pulmonary arteries. Not diagnostic for the aorta. RENAL FUNCTION: Creatinine 1.2 RADIATION DOSE: CT Rad equipment meets quality standard of care and radiation dose reduction techniq ues were employed. CTDIvol: 18.2 - 19.8 mGy. DLP: 769 mGy-cm. . LIMITATIONS: None. FINDINGS: LUNGS AND PLEURA: No masses, infiltrates, pneumothorax. No pleural effusions, calcificati ons. AORTA AND GREAT VESSELS: No aneurysm. Contrast bolus not optimized for the aorta. HEART: No pericardial effusion. No significant coronary artery calcifications. PULMONARY ARTERIES: No emboli visualized in the main pulmonary arteries or the segmental branches. HILAR AND MEDIASTINAL STRUCTURES: No identified masses or abnormal nodes. HARDWARE: None in the chest. UPPER ABDOMEN: No significant findings. Limited exam. THYROID AND OTHER SOFT TISSUES: No masses. No adenopathy. BONES: No acute or significant finding. 3D MIPS: Confirm above findings. OTHER: No other significant finding. IMPRESSION: NORMAL CTA OF THE CHEST. NO PULMONARY EMBOLI. COMMENT: Quality ID # [id number]: Final reports with documentation of one or more dose reduction techniques (e.g., Automated exposure control, adjustment of the mA and/or kV according to patient size, use of iterative reconstruction technique) TECHNICAL DOCUMENTATION: JOB ID: [id number]- All Rights Reserved Reading location - IP/workstation name: [email or web address]
[2017-09-06 11:57] LABS: ABSOLUTE LYMPHOCYTES (AUTO) 1.6 10^3/uL (0.5-4.7); ABSOLUTE MONOCYTES (AUTO) 1.2 10^3/uL (0.1-1.4); ABSOLUTE NEUT (AUTO) 6.5 10^3/uL (1.7-8.2); BASOPHILS % (AUTO) 0.2 % (0-2); EOSINOPHILS % (AUTO) 0.4 % (0-6); HEMATOCRIT 38.5 % (37.9-51.0); HEMOGLOBIN 12.9 g/dL (13.5-17.0); LYMPHOCYTES % (AUTO) 17.3 % (13-45); MEAN CORPUSCULAR HEMOGLOBIN 28.4 pg (27.0-33.4); MEAN CORPUSCULAR HGB CONC 33.5 g/dL (32.0-36.0); MEAN CORPUSCULAR VOLUME 85 fl (80-97); MONOCYTES % (AUTO) 12.8 % (3-13); PLATELET COUNT 248 10^3/uL (150-450); RED BLOOD COUNT 4.54 10^6/uL (4.35-5.55); RED CELL DISTRIBUTION WIDTH 14.1 % (11.5-14.0); SEGMENTED NEUTROPHILS % (AUTO) 69.3 % (42-78); TOTAL CELLS COUNTED % (AUTO) 100 %; WHITE BLOOD COUNT 9.4 10^3/uL (4.0-10.5)
[2017-09-06 12:20] LABS: ANION GAP 6 (5-19); BLOOD UREA NITROGEN 15 mg/dL (7-20); CALCIUM 9.2 mg/dL (8.4-10.2); CARBON DIOXIDE 30 mmol/L (22-30); CHLORIDE 106 mmol/L (98-107); GLUCOSE 107 mg/dL (75-110); POTASSIUM 4.2 mmol/L (3.6-5.0); SODIUM 142.2 mmol/L (137-145)
[2017-09-06 12:37] LABS: FREE T4 (FREE THYROXINE) 1.14 ng/dL (0.78-2.19)
[2017-09-06 12:51] LABS: THYROID STIMULATING HORMONE 1.63 uIU/mL (0.47-4.68)
--- NOTE | 2017-09-06 13:47 | RADIOLOGY REPORT (SQ) ---
EXAM DESCRIPTION: VENOUS UNILATERAL LOWER COMPLETED DATE/TIME: 09/06/2017 1:20 pm REASON FOR STUDY: RLE PAIN, HX DVT COMPARISON: None. TECHNIQUE: Dynamic and static santa scale and color images acquired of the right leg venous system. S elected spectral images acquired with additional compression and augmentation maneuvers. The contrala teral common femoral vein and saphenofemoral junction were also imaged. Images stored on PACS. LIMITATIONS: None. FINDINGS: RIGHT COMMON FEMORAL: Normal phasicity, compression and augmentation. No visualized echogenic material on g ray scale. No defects on color images. FEMORAL: Normal compression and augmentation. No visualized echogenic material on santa scale. No defe cts on color images. POPLITEAL: Normal compression, augmentation. No visualized echogenic material on santa scale. No defec ts on color images. CALF VESSELS: Normal compression, augmentation. No visualized echogenic material on santa scale. No de fects on color images. GSV and SSV: Normal compression, augmentation. No visualized echogenic material on santa scale. No def ects on color images. ANY DEEP VENOUS INSUFFICIENCY: No ANY EVIDENCE OF POPLITEAL CYST: No. OTHER: No other significant finding. LEFT COMMON FEMORAL VEIN AND SAPHENOFEMORAL JUNCTION: Normal phasicity, compression and augmentation. No visualized echogenic material on santa scale. No de fects on color images. IMPRESSION: NO EVIDENCE OF DVT OR SVT IN THE RIGHT LEG. TECHNICAL DOCUMENTATION: JOB ID: [id number] [employer]- All Rights Reserved Reading location - IP/workstation name: [email or web address]
[2017-09-06 14:01] LABS: APPEARANCE,URINE CLEAR; BILIRUBIN,URINE NEGATIVE (NEGATIVE); COLOR,URINE YELLOW; GLUCOSE, URINE NEGATIVE (NEGATIVE); KETONES,URINE NEGATIVE (NEGATIVE); LEUKOCYTE ESTERASE,URINE TRACE (NEGATIVE); NITRITE,URINE NEGATIVE (NEGATIVE); PROTEIN,URINE NEGATIVE (NEGATIVE); URINE SPECIFIC GRAVITY 1.053; UROBILINOGEN,URINE NEGATIVE mg/dL (<2.0)
[2017-09-06] MEDS ORDERED: NORMAL SALINE 1000 ML 1,000 ML IV PRN (14:52)
[2017-09-06] MEDS ORDERED: NALOXEGOL OXALATE 12.5 MG PO PRN (14:56)
[2017-09-06] MEDS ORDERED: (PENDING PHARMACY ID) (Lisinopril [Prinivil 30 Mg Tablet] 30 MG) PO SCH (15:00)
[2017-09-06] MEDS ORDERED: CEFTRIAXONE 1 GM/D5W RTU 1 GM/50 ML RTUPB IV SCH (15:00)
[2017-09-06] MEDS ORDERED: CEFTRIAXONE SODIUM 1,000 MG in NORMAL SALINE 100 ML IV ONE (16:00)
[2017-09-06] MEDS ORDERED: MORPHINE SULFATE SR 30 MG TABLET PO ONE (16:00)
[2017-09-06] MEDS ORDERED: LISINOPRIL 10 MG TABLET PO ONE (16:00)
[2017-09-06 16:12] LABS: CREATINE KINASE MB 4.35 ng/mL (<4.55); TROPONIN I 0.027 ng/mL
--- NOTE | 2017-09-06 17:05 | PDOC H&P ---
History of Present Illness Admission Date/PCP: 09/06/17 09:50 USMAN SHARMA MD History of Present Illness: ALISA JOSE is a 52 year old male.He has a history of enlarged prostate gland he just recently had ultrasound-guided biopsy of the prostate gland, he came to the office today for evaluation of difficulty urinating, he also complained of palpitations. A 12-lead EKG was done in the office, it showed narrow complex tachycardia most likely SVT, was given a nonselective beta -toño,bystolic and he was admitted directly into the hospital for observation but no bed was available in the hospital and the nursing split and drum room supervisor directed patient to the emergency room and he was again evaluated by the ER doctor, CTA chest was done in the emergency room which was negative for pulmonary embolus.2D echo was done, he showed left ventricular ejection fraction of 50%, grade 2 diastolic dysfunction of left ventricle Past Medical History Cardiac Medical History: Reports: Hypertension, Pulmonary Embolism Neurological Medical History: Denies: Seizures Renal/ Medical History: Reports: Other - BPH Past Surgical History Past Surgical History: Reports: Orthopedic Surgery - left ankle, back x3, Tonsillectomy Social History Smoking Status: Never Smoker Frequency of Alcohol Use: None Hx Recreational Drug Use: No Hx Prescription Drug Abuse: No Family History Family History: Reviewed & Not Pertinent Parental Family History Reviewed: Yes Children Family History Reviewed: Yes Sibling(s) Family History Reviewed.: Yes Medication/Allergy Home Medications: Lisinopril [Prinivil 30 mg Tablet] 30 mg PO DAILY 09/06/17 Morphine Sulfate [Morphine Sulfate ER] 30 mg PO Q12 09/06/17 Naloxegol Oxalate [Movantik] 12.5 mg PO DAILYP PRN 09/06/17 Oxycodone HCl 15 mg PO Q4HP PRN 09/06/17 Tamsulosin HCl [Flomax 0.4 mg Cap.sr] 0.4 mg PO QHS 09/06/17 Levofloxacin [Levaquin 750 mg Tablet] 750 mg PO DAILY #14 tab 09/07/17 Allergies/Adverse Reactions: testosterone Allergy (Verified 09/06/17 09:58) Pulmonary embolism Review of Systems Constitutional: ABSENT: chills, fever(s), headache(s), weight gain, weight loss Eyes: ABSENT: visual disturbances Ears: ABSENT: hearing changes Cardiovascular: PRESENT: palpitations. ABSENT: chest pain, dyspnea on exertion , edema, orthropnea Respiratory: ABSENT: cough, hemoptysis Gastrointestinal: ABSENT: abdominal pain, constipation, diarrhea, hematemesis, hematochezia, nausea, vomiting Genitourinary: PRESENT: dysuria, nocturia. ABSENT: hematuria Musculoskeletal: ABSENT: joint swelling Integumentary: ABSENT: rash, wounds Neurological: ABSENT: abnormal gait, abnormal speech, confusion, dizziness, focal weakness, syncope Psychiatric: ABSENT: anxiety, depression, homidical ideation, suicidal ideation Endocrine: ABSENT: cold intolerance, heat intolerance, menstrual abnormalities, polydipsia, polyuria Hematologic/Lymphatic: ABSENT: easy bleeding, easy bruising, lymphadenopathy Physical Exam Vital Signs: Temp Pulse Resp BP Pulse Ox 98.8 F 110 H 20 133/80 H 96 09/06/17 10:19 09/06/17 10:19 09/06/17 10:19 09/06/17 10:19 09/06/17 10:19 Intake & Output 09/05/17 09/06/17 09/07/17 06:59 06:59 06:59 Weight 117.6 kg General appearance: PRESENT: no acute distress, well-developed, well-nourished Head exam: PRESENT: atraumatic, normocephalic Eye exam: PRESENT: conjunctiva pink, EOMI, PERRLA Ear exam: PRESENT: normal external ear exam Mouth exam: PRESENT: moist, tongue midline Neck exam: PRESENT: full ROM Respiratory exam: PRESENT: clear to auscultation page Cardiovascular exam: PRESENT: RRR, +S1, +S2 Pulses: PRESENT: normal dorsalis pedis pul, +2 pedal pulses bilateral Vascular exam: PRESENT: normal capillary refill GI/Abdominal exam: PRESENT: normal bowel sounds, soft Rectal exam: PRESENT: deferred Neurological exam: PRESENT: alert, CN II-XII grossly intact Psychiatric exam: PRESENT: appropriate affect, normal mood Skin exam: PRESENT: dry, intact, warm Results Laboratory Results: 09/06/17 11:15 09/06/17 11:15 09/06/17 09/06/17 09/06/17 11:15 11:15 11:15 WBC 9.4 RBC 4.54 Hgb 12.9 L Hct 38.5 MCV 85 MCH 28.4 MCHC 33.5 RDW 14.1 H Plt Count 248 Seg Neutrophils % 69.3 Lymphocytes % 17.3 Monocytes % 12.8 Eosinophils % 0.4 Basophils % 0.2 Absolute Neutrophils 6.5 Absolute Lymphocytes 1.6 Absolute Monocytes 1.2 Absolute Eosinophils 0.0 Absolute Basophils 0.0 Sodium 142.2 Potassium 4.2 Chloride 106 Carbon Dioxide 30 Anion Gap 6 BUN 15 Creatinine 1.23 Est GFR ( Amer) > 60 Est GFR (Non-Af Amer) > 60 Glucose 107 Calcium 9.2 TSH 1.63 Free T4 1.14 Urine Color Urine Appearance Urine pH Ur Specific [place] Urine Protein Urine Glucose (UA) Urine Ketones Urine Blood Urine Nitrite Ur Leukocyte Esterase Urine WBC (Auto) Urine RBC (Auto) 09/06/17 13:05 WBC RBC Hgb Hct MCV MCH MCHC RDW Plt Count Seg Neutrophils % Lymphocytes % Monocytes % Eosinophils % Basophils % Absolute Neutrophils Absolute Lymphocytes Absolute Monocytes Absolute Eosinophils Absolute Basophils Sodium Potassium Chloride Carbon Dioxide Anion Gap BUN Creatinine Est GFR ( Amer) Est GFR (Non-Af Amer) Glucose Calcium TSH Free T4 Urine Color YELLOW Urine Appearance CLEAR Urine pH 7.0 Ur Specific [place] 1.053 Urine Protein NEGATIVE Urine Glucose (UA) NEGATIVE Urine Ketones NEGATIVE Urine Blood NEGATIVE Urine Nitrite NEGATIVE Ur Leukocyte Esterase TRACE H Urine WBC (Auto) 8 Urine RBC (Auto) 1 09/06/17 09/06/17 15:17 15:17 Creatine Kinase 650 H CK-MB (CK-2) 4.35 Troponin I 0.027 Impressions: Chest/Abdomen CTA 09/06/17 10:56 IMPRESSION: NORMAL CTA OF THE CHEST. NO PULMONARY EMBOLI. Venous Doppler Study 09/06/17 10:58 IMPRESSION: NO EVIDENCE OF DVT OR SVT IN THE RIGHT LEG. Assessment & Plan - Diagnosis (1) Supraventricular tachycardia Is this a current diagnosis for this admission?: Yes Plan: Patient is presently normal sinus rhythm, 2D echo is ordered (2) Acute prostatitis Is this a current diagnosis for this admission?: Yes Plan: Patient treated with Levaquin
[2017-09-06] MEDS: MORPHINE SULFATE SR 30 MG TABLET PO SCH (21:52)
[2017-09-06] MEDS ORDERED: TAMSULOSIN HCL 0.4 MG CAP.SR.24H PO SCH (22:00)
[2017-09-06 22:18] LABS: CREATINE KINASE MB 4.1 ng/mL (<4.55); TROPONIN I 0.016 ng/mL
--- NOTE | 2017-09-06 23:31 | EKG REPORT ---
SEVERITY:- ABNORMAL ECG - SINUS TACHYCARDIA MULTIPLE VENTRICULAR PREMATURE COMPLEXES BORDERLINE LEFT AXIS DEVIATION : Confirmed by: Roly Felton 06-Sep-2017 23:31:07
[2017-09-07 03:19] LABS: HEMOGLOBIN 12.2 g/dL (13.5-17.0); MEAN CORPUSCULAR VOLUME 85 fl (80-97); PLATELET COUNT 231 10^3/uL (150-450); RED BLOOD COUNT 4.37 10^6/uL (4.35-5.55); RED CELL DISTRIBUTION WIDTH 14.1 % (11.5-14.0); WHITE BLOOD COUNT 5.5 10^3/uL (4.0-10.5)
[2017-09-07 03:38] LABS: BLOOD UREA NITROGEN 14 mg/dL (7-20); CALCIUM 8.6 mg/dL (8.4-10.2); GLUCOSE 106 mg/dL (75-110)
[2017-09-07 03:50] LABS: CREATINE KINASE MB 3.59 ng/mL (<4.55)
[2017-09-07 03:51] LABS: TROPONIN I < 0.012 ng/mL
[2017-09-07 04:20] LABS: ANION GAP 8 (5-19); CARBON DIOXIDE 27 mmol/L (22-30); CHLORIDE 111 mmol/L (98-107); POTASSIUM 4.1 mmol/L (3.6-5.0); SODIUM 145.7 mmol/L (137-145)
[2017-09-07] MEDS: OXYCODONE HCL IR 5 MG TABLET PO PRN ×2 (04:30→16:19)
[2017-09-07] MEDS ORDERED: DILTIAZEM HCL/D5W 125 MG/125 ML RTUINJ IV PRN (07:39)
[2017-09-07] MEDS ORDERED: LISINOPRIL 10 MG TABLET PO SCH (10:00)
[2017-09-07] MEDS ORDERED: ENOXAPARIN SODIUM INJ 40 MG/0.4 ML DISP.SYRIN SUBCUT SCH (10:00)
[2017-09-07] MEDS ORDERED: LEVOFLOXACIN 750 MG/D5W RTU 750 MG/150 ML RTUPB IV SCH (10:00)
[2017-09-07] MEDS: MORPHINE SULFATE SR 30 MG TABLET PO SCH (10:43)
[2017-09-07] MEDS ORDERED: ACETAMINOPHEN 325 MG TABLET ONE (12:27)
[2017-09-07] MEDS ORDERED: ACETAMINOPHEN 325 MG TABLET PO PRN (13:11)
--- NOTE | 2017-09-07 14:52 | XCELERA REPORT ---
[address] [address] Transthoracic Echocardiogram Report Name: ALISA JOSE Age: 52 yrs Gender: Male : 1965 Patient Status: Inpatient Patient [address] Study Date: 09/06/2017 11:35 AM Height: 78 in Weight: 259 lb BSA: 2.5 m2 Procedure: A complete two-dimensional transthoracic echocardiogram was performed (2D, M-mode, spectral and color flow Doppler). The study was technically adequate with some images being suboptimal in quality. Reason For Study: er svt, chest pain Ordering Physician: USMAN SHARMA Performed By: Kimberley Gutierrez Interpretation Summary LV EF is 50% Left ventricular systolic function is borderline reduced. There is borderline concentric left ventricular hypertrophy. The left ventricle is grossly normal size. Doppler measurements suggest pseudonormalized left ventricular relaxation, which is associated with grade II/IV or mild to moderate diastolic dysfunction Wall motion cannot be accurately commented on, but no definite regional wall motion abnormalities noted. The right ventricle is mildly dilated. The right ventricular systolic function is normal. The right atrium is mildly dilated. The left atrial size is normal. There is a trace to mild amount of mitral regurgitation There is no mitral valve stenosis. There is no aortic valve stenosis No aortic regurgitation is present. There is a trace or physiologic amount of tricuspid regurgitation Tricuspid regurgitation jet envelope not well defined to measure RV systolic pressure accurately. The aortic root is not well visualized but is probably normal size. The inferior vena cava was not well visualized There is no pericardial effusion. MMode/2D Measurements & Calculations RVDd: 2.4 cm LVIDd: 6.0 cm FS: 21.7 % Ao root diam: 3.6 cm IVSd: 1.0 cm LVIDs: 4.7 cm EDV(Teich): 180.5 ml LVPWd: 0.98 cm ESV(Teich): 102.6 mlAo root area: 10.2 cm2 EF(Teich): 43.2 % LA dimension: 3.6 cm LVOT diam: 2.2 cm LVOT area: 3.9 cm2 Doppler Measurements & Calculations MV E max sarahy: MV P1/2t max sarahy: Ao V2 max: LV V1 max P.1 cm/sec 75.4 cm/sec 155.9 cm/sec 4.3 mmHg MV A max sarahy: MV P1/2t: 53.3 msec Ao max PG: LV V1 max: 68.2 cm/sec MVA(P1/2t): 4.1 cm2 9.7 mmHg 103.5 cm/sec MV E/A: 1.1 MV dec slope: LUCIO(V,D): 2.6 cm2 414.2 cm/sec2 PA V2 max: TR max sarahy: 82.4 cm/sec 219.4 cm/sec PA max PG: TR max P.2 mmHg 2.7 mmHg Left Ventricle The left ventricle is grossly normal size. There is borderline concentric left ventricular hypertrophy. Left ventricular systolic function is borderline reduced. LV EF is 50%. Doppler measurements suggest pseudonormalized left ventricular relaxation, which is associated with grade II/IV or mild to moderate diastolic dysfunction. Wall motion cannot be accurately commented on, but no definite regional wall motion abnormalities noted. Right Ventricle The right ventricle is mildly dilated. There is normal right ventricular wall thickness. The right ventricular systolic function is normal. Atria The right atrium is mildly dilated. The left atrial size is normal. Interarterial septum not well visualized and not well dopplered. Cannot comment on ASD/PFO presence. Mitral Valve The mitral valve is grossly normal. There is no mitral valve stenosis. There is a trace to mild amount of mitral regurgitation. Aortic Valve The aortic valve is grossly normal. There is no aortic valve stenosis. No aortic regurgitation is present. Tricuspid Valve The tricuspid valve is not well visualized, but is grossly normal. There is no tricuspid stenosis. There is a trace or physiologic amount of tricuspid regurgitation. Tricuspid regurgitation jet envelope not well defined to measure RV systolic pressure accurately. Pulmonic Valve The pulmonic valve is not well visualized. Great Vessels The aortic root is not well visualized but is probably normal size. The inferior vena cava was not well visualized. Effusions There is no pericardial effusion. : USMAN SHARMA > Roly Felton
[2017-09-07 17:18] VITALS: BP 126/82
[2017-09-07] MEDS ORDERED: CEFTRIAXONE SODIUM 1,000 MG in NORMAL SALINE 100 ML IV SCH (18:00)
--- NOTE | 2017-09-07 18:56 | PDOC DISCHARGE SUMMARY ---
General - Admit/Disc Date/PCP Admission Date/Primary Care Provider: 09/06/17 09:50 USMAN SHARMA MD Discharge Date: 09/07/17 - Discharge Diagnosis (1) Supraventricular tachycardia Is this a current diagnosis for this admission?: Yes (2) Acute prostatitis Is this a current diagnosis for this admission?: Yes (3) Benign prostatic hyperplasia with lower urinary tract symptoms Is this a current diagnosis for this admission?: Yes (4) Essential (primary) hypertension Is this a current diagnosis for this admission?: Yes (5) Diastolic dysfunction without heart failure Is this a current diagnosis for this admission?: Yes - Additional Information Resuscitation Status: Full Code Discharge Diet: As Tolerated Discharge Activity: Activity As Tolerated, Walk Frequently Prescriptions: Levofloxacin [Levaquin 750 mg Tablet] 750 mg PO DAILY #14 tab Home Medications: Lisinopril [Prinivil 30 mg Tablet] 30 mg PO DAILY 09/06/17 Morphine Sulfate [Morphine Sulfate ER] 30 mg PO Q12 09/06/17 Naloxegol Oxalate [Movantik] 12.5 mg PO DAILYP PRN 09/06/17 Oxycodone HCl 15 mg PO Q4HP PRN 09/06/17 Tamsulosin HCl [Flomax 0.4 mg Cap.sr] 0.4 mg PO QHS 09/06/17 Levofloxacin [Levaquin 750 mg Tablet] 750 mg PO DAILY #14 tab 09/07/17 History of Present Illness History of Present Illness: ALISA JOSE is a 52 year old male.He has a history of enlarged prostate gland he just recently had ultrasound-guided biopsy of the prostate gland, he came to the office today for evaluation of difficulty urinating, he also complained of palpitations. A 12-lead EKG was done in the office, it showed narrow complex tachycardia most likely SVT, was given a nonselective beta -toño,bystolic and he was admitted directly into the hospital for observation but no bed was available in the hospital and the nursing supervisor food checkers and cashiers directed patient to the emergency room and he was again evaluated by the ER doctor, CTA chest was done in the emergency room which was negative for pulmonary embolus.2D echo was done, he showed left ventricular ejection fraction of 50%, grade 2 diastolic dysfunction of left ventricle Hospital Course Hospital Course: Patient was admitted for the management of SVT, acute prostatitis, he was treated with IV Levaquin, 2D echo was done, showed low normal ejection fraction of left ventricle with grade 2 diastolic dysfunction of the left ventricle without CHF.The SVT was treated with p.o. bystolic with conversion to sinus rhythm Physical Exam Vital Signs: Temp Pulse Resp BP Pulse Ox 98.2 F 62 13 126/82 H 97 09/07/17 17:16 09/07/17 17:16 09/07/17 17:16 09/07/17 17:16 09/07/17 17:16 Intake & Output 09/06/17 09/07/17 09/08/17 06:59 06:59 06:59 Intake Total 1275 768 Output Total 500 Balance 775 768 Weight 119.2 kg General appearance: PRESENT: no acute distress, well-developed, well-nourished Head exam: PRESENT: atraumatic, normocephalic Eye exam: PRESENT: conjunctiva pink, EOMI, PERRLA Ear exam: PRESENT: normal external ear exam Mouth exam: PRESENT: moist, tongue midline Neck exam: PRESENT: full ROM Respiratory exam: PRESENT: clear to auscultation page Cardiovascular exam: PRESENT: RRR, +S1, +S2 Pulses: PRESENT: normal dorsalis pedis pul, +2 pedal pulses bilateral Vascular exam: PRESENT: normal capillary refill GI/Abdominal exam: PRESENT: normal bowel sounds, soft Rectal exam: PRESENT: deferred Neurological exam: PRESENT: alert, awake, oriented to person, oriented to place , oriented to time, oriented to situation, CN II-XII grossly intact Psychiatric exam: PRESENT: appropriate affect, normal mood Skin exam: PRESENT: dry, intact, warm Results Laboratory Results: 09/07/17 03:13 09/07/17 03:13 09/07/17 09/07/17 09/07/17 03:13 03:13 03:13 WBC 5.5 RBC 4.37 Hgb 12.2 L Hct 37.0 L MCV 85 MCH 28.0 MCHC 33.0 RDW 14.1 H Plt Count 231 Sodium 145.7 H Potassium 4.1 Chloride 111 H Carbon Dioxide 27 Anion Gap 8 BUN 14 Creatinine 1.12 Est GFR ( Amer) > 60 Est GFR (Non-Af Amer) > 60 Glucose 106 Calcium 8.6 TSH 1.21 04/09/2009/06/17 09/06/17 15:17 15:17 21:15 Creatine Kinase 650 H 577 H CK-MB (CK-2) 4.35 Troponin I 0.027 09/06/17 09/07/17 09/07/17 21:15 03:13 03:13 Creatine Kinase 510 H CK-MB (CK-2) 4.10 3.59 Troponin I 0.016 < 0.012 Impressions: Chest/Abdomen CTA 09/06/17 10:56 IMPRESSION: NORMAL CTA OF THE CHEST. NO PULMONARY EMBOLI. Venous Doppler Study 09/06/17 10:58 IMPRESSION: NO EVIDENCE OF DVT OR SVT IN THE RIGHT LEG. Qualifiers - * PATEINT BEING DISCHARGED WITH ANY OF THE FOLLOWING DIAGNOSIS?: No
== END 2017-09-07 18:18 | disposition home or self-care (01) ==
LOC: ER 09:40 → EH 09:50 → 3W 19:07
PROVIDERS: ADMIT Internal Medicine; ATTEND Internal Medicine
DX: I47.1 Supraventricular tachycardia (principal); N40.1 Benign prostatic hyperplasia with lower urinary tract symptoms; N41.0 Acute prostatitis; I10 Essential (primary) hypertension; Z86.711 Personal history of pulmonary embolism
CPT/HCPCS: 93005; 36415 ×2; 87040; 87086; 84439; 82553 ×2; 82550 ×2; 84443 ×2; 85025; 85027; 87088; 80048 ×2; 81001; 84484 ×2; 87186; 83036; 93306; 93971; 71275; 93010; J1650; J0696; J3490; J7030; J1956

== ENCOUNTER 2018-03-10 07:51 | Emergency (ER) | payer BC, MEDICARE ==
--- NOTE | 2018-03-10 08:19 | ER Document Report ---
ED General - General Chief Complaint: Post Surgical Pain Stated Complaint: BACK PAIN Time Seen by Provider: 03/10/18 08:04 TRAVEL OUTSIDE OF THE [place] IN LAST 30 DAYS: No - HPI Notes: Patient is a 53-year-old male with a history of chronic back pain, PE (off meds x2yrs), and hypertension who presents to the ED complaining of mid back pain that radiates around to his right upper abdominal area times 1-2 days. Patient states that he had a spinal cord stimulator placed [address] Munoz, [facility], and has had severe pain since then. Patient states that they did take him off of his pain medicines as well at that time. Patient states that he has never had pain in this area before. Movements and pressure in the area make the pain worse. Patient states that he has not been able to eat well because of the pain. Denies any headache, fever, URI, sore throat, chest pain, palpitations, syncope, cough, shortness of breath, wheeze, dyspnea, abdominal pain, nausea/vomiting/diarrhea, urinary retention, dysuria, hematuria, loss of control of bowel or bladder, numbness/tingling, saddle anesthesia, muscle paralysis/weakness, or rash. - Related Data Allergies/Adverse Reactions: testosterone Allergy (Verified 03/10/18 07:53) Pulmonary embolism Past Medical History - Social History Smoking Status: Unknown if Ever Smoked Family History: Reviewed & Not Pertinent - Past Medical History Cardiac Medical History: Reports: Hx Hypertension, Hx Pulmonary Embolism Denies: Hx Coronary Artery Disease, Hx Heart Attack Pulmonary Medical History: Denies: Hx Asthma, Hx Bronchitis, Hx COPD, Hx Pneumonia, Hx Tuberculosis Neurological Medical History: Denies: Hx Cerebrovascular Accident, Hx Seizures Renal/ Medical History: Reports: Hx Benign Prostatic Hyperplasia. Denies: Hx Peritoneal Dialysis Musculoskeletal Medical History: Denies Hx Arthritis Psychiatric Medical History: Denies: Hx Depression Past Surgical History: Reports: Hx Orthopedic Surgery - left ankle, back x3, Hx Tonsillectomy - Immunizations Hx Diphtheria, Pertussis, Tetanus Vaccination: Yes Review of Systems - Review of Systems -: Yes All other systems reviewed and negative Physical Exam - Vital signs Vitals: Temp Pulse Resp BP Pulse Ox 98.9 F 85 20 152/94 H 99 03/10/18 07:54 03/10/18 07:54 03/10/18 07:54 10/06/18 07:54 03/10/18 07:54 - Notes Notes: PHYSICAL EXAMINATION: GENERAL: Well-appearing, well-nourished and in no acute resp distress. Pt does appear uncomfortable and is standing. LUNGS: Breath sounds clear to auscultation bilaterally and equal. No wheezes rales or rhonchi. HEART: Regular rate and rhythm without murmurs, rubs, gallops. ABDOMEN: Soft, nondistended abdomen. No guarding, no rebound. No masses appreciated. Normal bowel sounds present. No CVA tenderness bilaterally. No pulsatile mass. + tenderness to light palp of the rt mid back/flank. + tenderness RUQ, primarily with light palpation. Musculoskeletal: LE's b/l: FROM to passive/active. Strength 5+/5. No deficits noted. No bony tenderness of extremities. Back: LROM to passive/active. Strength 5+/5. No vertebral point tenderness, stepoffs, or deformities. No other bony tenderness, erythema, swelling, or ecchymosis. SLR negative b/l. + tenderness to light palp of the rt mid back around dermatome T-8 +/-. No SI jt tenderness. No foot drop. + noted stimulator site and battery site noted w/o evidence of infection. Extremities: No cyanosis, clubbing, or edema b/l. Peripheral pulses 2+. Capillary refill less than 2 seconds. NEUROLOGICAL: Normal speech, normal gait. Normal sensory, motor exams. Reflexes 2+ b/l. PSYCH: Normal mood, normal affect. SKIN: Warm, Dry, normal turgor, no rashes or lesions noted. Course - Re-evaluation Re-evalutation: 03/10/18 09:53 Spoke with Khang Ley PA-C ([facility]) who spoke with his neurosurgeon and recommended MRI to further evaluate. They would like a call back thereafter. 03/10/18 10:08 The rep for the stimulator called me and we turned the machine entirely off which did not changes symptoms so he believes that it is not directly due to the function of the stimulator. This may all just be post-surgical pain. The stimulator will not go to "MRI mode" indicating that it is too early s/p procedure to allow for MRI. We will keep the unit off until discharge to see if pain changes. He recommends CT scan to further evaluate. Pt in agreement. Radiologist recommends CT with contrast. 03/10/18 13:12 Spoke with Arpit Ley PA-C. reviewed unremarkable CT results and he will speak with his supervising. He plans are discharge to home otherwise at this time. 03/10/18 14:17 Spoke again to SHIRA Ley. Recommends discharge. Patient is an afebrile, well-hydrated, 53-year-old male who presents to the ED with Rt thoracic back pain approx dermatome #8-9 +/- s/p stimulator placement 2 days ago, suspect inflammatory. Vitals are acceptable. PE is otherwise unremarkable for any focal neurological deficits. X-ray, CT scans, and RUQ US unremarkable for any acute pathology. Lidoderm patch applied. CBC, CMP, Lipase unremarkable. Patient was given morphine and dilaudid in the ED as well as zofran. He has no significant tachycardia, tachypnea, or hypoxia. He is nontoxic-appearing and is tolerating p.o. without difficulties. There are no signs of infection. No other red flag symptoms noted. No other labs or imaging warranted at this time based on H&P. Low suspicion for any meningitis, fracture, expanding/ruptured AAA, cauda equina syndrome, epidural mass lesion/ abscess, herniated disc causing severe spinal stenosis, or other systemic infection at this time. Patient is aware that his condition can change from initial presentation and that he needs monitor symptoms closely for any acute changes. I will send him home with a prescription for lidoderm patches. No change with keeping the stimulator off. Stimulator turned back on to level 19 ( baseline). Conservative measures otherwise for symptoms. Recheck with your PCM in 3-5 days. Recheck with your surgeon next week. Return to the ED with any worsening/concerning symptoms otherwise as reviewed discharge. Patient is in agreement. - Vital Signs Vital signs: Temp Pulse Resp BP Pulse Ox 99 F 73 16 144/88 H 99 03/10/18 14:07 03/10/18 14:07 03/10/18 14:07 03/10/18 14:07 03/10/18 14:07 - Laboratory Result Diagrams: 03/10/18 08:20 03/10/18 08:20 Laboratory results interpreted by me: 10/06/18 10/06/18 10/06/18 08:20 08:20 11:13 RDW 15.1 H Glucose 122 H Urine Urobilinogen 2.0 H Discharge - Discharge Clinical Impression: Thoracic back pain Qualifiers: Chronicity: acute Back pain laterality: right Qualified Code(s): M54.6 - Pain in thoracic spine Condition: Stable Disposition: HOME, SELF-CARE Additional Instructions: Rest, Ice/cool compresses Tylenol/ibuprofen as needed Light stretches daily Strength exercises as able Moist heat and massage may help F/u with your PCP in 3-5 days for a recheck See your Neurosurgeon in 3-5 days for a recheck as reviewed Return to the ED with any worsening symptoms and/or development of fever, headache, chest pain, palpitations, syncope, shortness of breath, trouble breathing, abdominal pain, n/v/d, blood in stool/urine, loss of control of bowel /bladder, urinary retention, muscle weakness/paralysis, saddle anesthesia, numbness/tingling, or other worsening symptoms that are concerning to you. Prescriptions: Lidocaine [Lidoderm] 1 each TP DAILY #30 adh..patch Forms: Elevated Blood Pressure Referrals: USMAN SHARMA MD [Primary Care Provider] - Follow up in 3-5 days Neurosurgery [Provider Group] - Follow up in 3-5 days
[2018-03-10] MEDS ORDERED: ONDANSETRON HCL INJ/PF 4 MG/2 ML SDV IV ONE (08:21)
[2018-03-10] MEDS ORDERED: MORPHINE SULFATE 10 MG/ML INJ IV ONE (08:21)
[2018-03-10 08:36] LABS: ABSOLUTE EOSINOPHILS # (AUTO) 0.1 10^3/uL (0.0-0.6); ABSOLUTE LYMPHOCYTES (AUTO) 2.3 10^3/uL (0.5-4.7); ABSOLUTE NEUT (AUTO) 4.9 10^3/uL (1.7-8.2); BASOPHILS % (AUTO) 0.6 % (0-2); EOSINOPHILS % (AUTO) 1.3 % (0-6); HEMATOCRIT 39.9 % (37.9-51.0); HEMOGLOBIN 13.7 g/dL (13.5-17.0); LYMPHOCYTES % (AUTO) 26.9 % (13-45); MEAN CORPUSCULAR HEMOGLOBIN 28.5 pg (27.0-33.4); MEAN CORPUSCULAR HGB CONC 34.3 g/dL (32.0-36.0); MEAN CORPUSCULAR VOLUME 83 fl (80-97); MONOCYTES % (AUTO) 12.3 % (3-13); PLATELET COUNT 215 10^3/uL (150-450); RED BLOOD COUNT 4.79 10^6/uL (4.35-5.55); RED CELL DISTRIBUTION WIDTH 15.1 % (11.5-14.0); SEGMENTED NEUTROPHILS % (AUTO) 58.9 % (42-78); TOTAL CELLS COUNTED % (AUTO) 100 %; WHITE BLOOD COUNT 8.4 10^3/uL (4.0-10.5)
[2018-03-10 08:59] LABS: ALANINE AMINOTRANSFERASE 32 U/L (21-72); ALKALINE PHOSPHATASE 53 U/L (38-126); ANION GAP 5 (5-19); ASPARTATE AMINO TRANSFERASE 34 U/L (17-59); BILIRUBIN,DIRECT 0.4 mg/dL (0.0-0.4); BILIRUBIN,TOTAL 1.3 mg/dL (0.2-1.3); BLOOD UREA NITROGEN 11 mg/dL (7-20); CARBON DIOXIDE 29 mmol/L (22-30); CHLORIDE 106 mmol/L (98-107); GLUCOSE 122 mg/dL (75-110); LIPASE 158.4 U/L (23-300); POTASSIUM 3.9 mmol/L (3.6-5.0); SODIUM 140.3 mmol/L (137-145); TOTAL PROTEIN 7.7 g/dL (6.3-8.2)
[2018-03-10] MEDS ORDERED: NORMAL SALINE 1000 ML 1,000 ML IV ONE (09:08)
--- NOTE | 2018-03-10 09:09 | RADIOLOGY REPORT (SQ) ---
EXAM DESCRIPTION: T SPINE AP/LAT COMPLETED DATE/TIME: 03/10/2018 8:30 am REASON FOR STUDY: recent stimulator placement, Rt mid back pain COMPARISON: None. NUMBER OF VIEWS: Two views. TECHNIQUE: AP and lateral radiographic images acquired of the thoracic spine. LIMITATIONS: None. FINDINGS: MINERALIZATION: Normal. ALIGNMENT: Normal. No scoliosis. VERTEBRAE: 12 rib-bearing vertebra. DISCS: No significant loss of height or significant narrowing. No large osteophytes. HARDWARE: None in the spine. MEDIASTINUM AND SOFT TISSUES: The heart is normal. The pulmonary vasculature is normal. VISUALIZED LUNG JAMES: No acute infiltrates or effusions. OTHER: Stimulator leads overlying the dorsal region at the level of T9. IMPRESSION: No acute disease. TECHNICAL DOCUMENTATION: JOB ID: [id number] SC-[id number] 2010 [employer]- All Rights Reserved Reading location - IP/workstation name: [email or web address]
--- NOTE | 2018-03-10 09:18 | RADIOLOGY REPORT (SQ) ---
EXAM DESCRIPTION: U/S ABDOMEN LIMITED W/O DOP COMPLETED DATE/TIME: 03/10/2018 8:57 am REASON FOR STUDY: RUQ pain COMPARISON: None. TECHNIQUE: Dynamic and static grayscale images acquired of the abdomen and recorded on PACS. Additio nal selected color Doppler and spectral images recorded. LIMITATIONS: Limitation due to bowel gas. FINDINGS: PANCREAS: Obscured by bowel gas. LIVER: The liver measures 18.4 cm demonstrating normal echogenicity. LIVER VASCULATURE: Normal directional flow of the main portal vein and hepatic veins. GALLBLADDER: No abnormality. The gallbladder wall measures 3 mm. ULTRASOUND-DETECTED BRICENO'S SIGN: Negative. INTRAHEPATIC DUCTS AND COMMON DUCT: CBD is normal measuring 7 mm. Intrahepatic ducts normal caliber. No filling defects. INFERIOR VENA CAVA: Normal flow. AORTA: Upper abdominal aorta measures 2.9 cm in AP diameter. The remainder the aorta is obscured by bowel gas. RIGHT KIDNEY: The right kidney is normal measuring 11.8 x 5 x 5.5 cm. Within the right kidney there is evidence of cortical cyst measuring 2.2 x 2.7 x 2.4 cm and smaller cortical cyst measuring 1.6 x 1.9 x 1.2 cm. PERITONEAL AND RIGHT PLEURAL SPACE: No ascites or effusions. OTHER: No other significant findings. IMPRESSION: Cortical cysts the right kidney. Otherwise, no significant abnormality seen. TECHNICAL DOCUMENTATION: JOB ID: [id number] SC-[id number] 2010 [employer]- All Rights Reserved Reading location - IP/workstation name: [email or web address]
[2018-03-10] MEDS ORDERED: HYDROMORPHONE HCL INJ/PF 2 MG/ML AMPULE IV ONE ×3 (09:32→13:56)
--- NOTE | 2018-03-10 11:10 | RADIOLOGY REPORT (SQ) ---
EXAM DESCRIPTION: CT LUMBAR SPINE WITHOUT COMPLETED DATE/TIME: 03/10/2018 10:27 am REASON FOR STUDY: pain approx Derm #9 s/p stimulator placement COMPARISON: Concurrent thoracic spine radiograph TECHNIQUE: Axial images acquired through the lumbar spine without intravenous contrast. Images revi ewed with lung, soft tissue and bone windows. Reconstructed coronal and sagittal MPR images reviewed . All images stored on PACS. All CT scanners at this facility use dose modulation, iterative reconstruction, and/or weight based d osing when appropriate to reduce radiation dose to as low as reasonably achievable (ALARA). [facility]: Dose Right [facility]: CareDose [facility]: Dose Right [facility]: Teradose 4D [facility]: DDStocks RADIATION DOSE: mGy. LIMITATIONS: None. FINDINGS: SEGMENTATION: Normal. No transitional anatomy. ALIGNMENT: Normal. VERTEBRAL BODIES: No acute fracture. No listhesis. Bilateral S1 laminectomies. Chronic deformities of the posterior iliac spines. DISCS: Fusion of the L4-L5 and L5-S1 discs. Remainder of the disc heights are normal. PEDICLES, TRANSVERSE PROCESSES: No fractures. No dislocation. No acute findings. FACETS, POSTERIOR ELEMENTS: No fractures. No dislocation. No spinal stenosis. HARDWARE: Posterior spine fusion hardware with interbody spacers of L4-S1. No periprosthetic lucency or hardware fracture. Incompletely visualized spinal stimulator leads within the right posterior garcía bcutaneous fat overlying the lumbar spine. No discontinuity or kinking of the visualized stimulator leads. VISUALIZED RIBS: No fractures. SOFT TISSUES: Mild diffuse soft tissue swelling of the subcutaneous fat posterior to the lumbar spine with a few foci of air, iatrogenic. No fluid collections. OTHER: 2 hypoattenuating lesions within the right kidney with internal attenuation consistent with si mple renal cysts. Largest measures 2.1 x 3.0 cm. Remainder of the visualized intra-abdominal conten ts are normal. IMPRESSION: 1. Number mild diffuse soft tissue swelling posterior to the lumbar spine, iatrogenic. No focal flui d collection. 2. L4-S1 posterior spinal fusion hardware and incompletely visualized spinal stimulator leads. No ev idence of hardware complication. TECHNICAL DOCUMENTATION: JOB ID: [id number] Quality ID # [id number]: Final reports with documentation of one or more dose reduction techniques (e.g., Au tomated exposure control, adjustment of the mA and/or kV according to patient size, use of iterative reconstruction technique) 2010 [employer]- All Rights Reserved Reading location - IP/workstation name: [email or web address]
--- NOTE | 2018-03-10 11:17 | RADIOLOGY REPORT (SQ) ---
EXAM DESCRIPTION: CT THORACIC SPINE WITHOUT COMPLETED DATE/TIME: 03/10/2018 10:27 am REASON FOR STUDY: pain approx Derm #9 s/p stimulator placement COMPARISON: Concurrent CT lumbar spine and CT chest 09/06/2017 TECHNIQUE: Axial images acquired through the thoracic spine without intravenous contrast. Images re viewed with lung, soft tissue and bone windows. Reconstructed coronal and sagittal MPR images review ed. Images stored on PACS. All CT scanners at this facility use dose modulation, iterative reconstruction, and/or weight based d osing when appropriate to reduce radiation dose to as low as reasonably achievable (ALARA). [facility]: Dose Right [facility]: CareDose [facility]: Dose Right [facility]: Teradose 4D [facility]: Smart [email or web address] RADIATION DOSE: CT Rad equipment meets quality standard of care and radiation dose reduction techniq ues were employed. CTDIvol: 34.3 mGy. DLP: 1445 mGy-cm. mGy. LIMITATIONS: None. FINDINGS: VISUALIZED LUNGS: No acute opacities. No pneumothorax. SOFT TISSUES: No soft tissue swelling. No masses. VERTEBRAL BODIES: No fractures. No dislocation. No acute findings. DISCS: No significant disc space narrowing. ALIGNMENT: Normal. TRANSVERSE PROCESSES, POSTERIOR ELEMENTS: No fractures. No dislocation. No acute findings. HARDWARE: Incompletely visualized spinal stimulator leads which enters the central canal at the level of T9-T10 and terminate at the level of the inferior end plate of T8. No discontinuity or kinking o f the visualize stimulator leads. Few surrounding foci of air, some of which are within the right la teral prevertebral soft tissues, iatrogenic. Stranding of the posterior subcutaneous fat of the mid to lower thoracic spine. No fluid collection. VISUALIZED RIBS: No fractures. OTHER: Calcification of the spleen. Hypoattenuating lesions of the right kidney, as described on CT lumbar spine. Remainder of the intrathoracic and intra- abdominal contents are normal. IMPRESSION: Incompletely visualized spinal stimulator leads without discontinuity or kinking. Mild tissue edema posteriorly over the thoracic spine. No focal fluid collection. TECHNICAL DOCUMENTATION: JOB ID: [id number] Quality ID # [id number]: Final reports with documentation of one or more dose reduction techniques (e.g., Au tomated exposure control, adjustment of the mA and/or kV according to patient size, use of iterative reconstruction technique) 2010 [employer]- All Rights Reserved Reading location - IP/workstation name: [email or web address]
[2018-03-10 12:01] LABS: APPEARANCE,URINE CLEAR; BILIRUBIN,URINE NEGATIVE (NEGATIVE); COLOR,URINE YELLOW; GLUCOSE, URINE NEGATIVE (NEGATIVE); KETONES,URINE NEGATIVE (NEGATIVE); LEUKOCYTE ESTERASE,URINE NEGATIVE (NEGATIVE); NITRITE,URINE NEGATIVE (NEGATIVE); PROTEIN,URINE NEGATIVE (NEGATIVE); URINE SPECIFIC GRAVITY 1.019
[2018-03-10 14:08] VITALS: BP 144/88
[2018-03-10] MEDS ORDERED: LIDOCAINE 5% (700 MG) TRANSDERMAL ADH..PATCH TP ONE (14:19)
== END 2018-03-10 14:45 | disposition home or self-care (01) ==
LOC: ER 07:51
DX: M54.6 Pain in thoracic spine (principal); G89.18 Other acute postprocedural pain; M54.9 Dorsalgia, unspecified; G89.29 Other chronic pain; I10 Essential (primary) hypertension; R10.10 Upper abdominal pain, unspecified; Z79.890 Hormone replacement therapy; Z98.890 Other specified postprocedural states
CPT/HCPCS: 96376; 99284; 96361; 96374; 96375; 36415; 83690; 85025; 80053; 81001; 72070; 76705; 72129; 72132; J2270; J1170; J2405; J7030

== ENCOUNTER 2018-07-28 09:42 | Emergency (ER) | payer BC, MEDICARE ==
--- NOTE | 2018-07-28 10:40 | ER Document Report ---
ED Flu Like - General Chief Complaint: Flu Symptoms Stated Complaint: FLU SYMPTOMS Time Seen by Provider: 07/28/18 10:23 Primary Care Provider: USMAN SHARMA MD [Primary Care Provider] - Follow up in 3-5 days Mode of Arrival: Ambulatory Information source: Patient Notes: 53-year-old male presents to ED for cough cold congestion sore throat fever and body aches since Monday. He states he woke up this morning coughed a lot and then threw up some. He states last night his blood pressure was high and he took an extra blood pressure medicine. When he came to the emergency room this morning his blood pressure read on the automatic machine 146/107 when I took it with a manual cuff it is 138/84. Patient states he took Excedrin this morning for a temperature of 109 and I explained to him that it might of been 100.9 but it would not have been 109. We will check patient for strep and flu as his lungs are clear at this time he does have nasal drainage and a slight red throat. TRAVEL OUTSIDE OF THE [place] IN LAST 30 DAYS: No - HPI Onset: Yesterday Timing/Duration: Intermittent Quality of pain: Achy, Pressure, Sharp Severity: Severe Pain Level: 5 Associated symptoms: Body/muscle aches, Productive cough, Earache, Vomiting, Rhinnorhea, Sinus pain/drainage, Sore throat - After coughing Similar symptoms previously: Yes Recently seen / treated by doctor: No - Related Data Allergies/Adverse Reactions: testosterone Allergy (Verified 07/28/18 09:43) Pulmonary embolism Past Medical History - General Information source: Patient - Social History Smoking Status: Former Smoker Frequency of alcohol use: Occasional Drug Abuse: None Lives with: Family Family History: Reviewed & Not Pertinent Patient has suicidal ideation: No Patient has homicidal ideation: No - Past Medical History Cardiac Medical History: Reports: Hx Hypertension, Hx Pulmonary Embolism Pulmonary Medical History: Reports: None EENT Medical History: Reports: None Neurological Medical History: Reports: None Endocrine Medical History: Reports: None Renal/ Medical History: Reports: Hx Benign Prostatic Hyperplasia Malignancy Medical History: Reports None GI Medical History: Reports: None Musculoskeletal Medical History: Reports None Skin Medical History: Reports None Psychiatric Medical History: Reports: None Traumatic Medical History: Reports: None Infectious Medical History: Reports: None Past Surgical History: Reports: Hx Orthopedic Surgery - left ankle, back x3, Hx Tonsillectomy - Immunizations Immunizations up to date: Yes Hx Diphtheria, Pertussis, Tetanus Vaccination: Yes Review of Systems - Review of Systems Constitutional: Chills, Fever, Recent illness EENT: Ear pain, Nose congestion, Nose discharge, Sinus pressure, Sinus discharge, Throat pain Cardiovascular: No symptoms reported Respiratory: Cough, Sputum Gastrointestinal: No symptoms reported Genitourinary: No symptoms reported Male Genitourinary: No symptoms reported Musculoskeletal: No symptoms reported Skin: No symptoms reported Hematologic/Lymphatic: No symptoms reported Neurological/Psychological: No symptoms reported Physical Exam - Vital signs Vitals: Temp Pulse Resp BP Pulse Ox 99.8 F 103 H 18 146/107 H 96 07/28/18 09:53 07/28/18 09:53 07/28/18 09:53 07/28/18 09:53 07/28/18 09:53 Interpretation: Normal, Hypertensive - 138/84, Tachycardic - 84. No: Tachypneic - 18 - General General appearance: Appears well, Alert - HEENT Head: Normocephalic, Atraumatic Eyes: Normal Pupils: PERRL Ears: Normal External canal: Normal Tympanic membrane: Normal Sinus: Normal Nasal: Purulent discharge, Swelling Mouth/Lips: Normal Mucous membranes: Normal Pharynx: Erythema, Post nasal drainage. No: Exudate, Tonsillar hypertrophy Neck: Normal - Respiratory Respiratory status: No respiratory distress Chest status: Nontender Breath sounds: Productive cough. No: Rales, Rhonchi, Stridor, Wheezing Chest palpation: Normal - Cardiovascular Rhythm: Regular Heart sounds: Normal auscultation Murmur: No - Abdominal Inspection: Normal Distension: No distension Bowel sounds: Normal Tenderness: Nontender Organomegaly: No organomegaly - Back Back: Normal, Nontender - Extremities General upper extremity: Normal inspection, Nontender, Normal color, Normal ROM, Normal temperature General lower extremity: Normal inspection, Nontender, Normal color, Normal ROM, Normal temperature, Normal weight bearing. No: Otto's sign - Neurological Neuro grossly intact: Yes Cognition: Normal Orientation: AAOx4 [place] Coma Scale Eye Opening: Spontaneous [place] Coma Scale Verbal: Oriented [place] Coma Scale Motor: Obeys Commands Ever Coma Scale Total: 15 Speech: Normal Motor strength normal: LUE, RUE, LLE, RLE Sensory: Normal - Psychological Associated symptoms: Normal affect, Normal mood - Skin Skin Temperature: Warm Skin Moisture: Dry Skin Color: Normal Course - Vital Signs Vital signs: Temp Pulse Resp BP Pulse Ox 99.3 F 88 16 140/80 H 100 07/28/18 11:50 07/28/18 11:50 07/28/18 11:50 07/28/18 12:00 07/28/18 11:50 Discharge - Discharge Clinical Impression: Viral sore throat URI (upper respiratory infection) Qualifiers: URI type: unspecified viral URI Qualified Code(s): J06.9 - Acute upper respiratory infection, unspecified Condition: Stable Disposition: HOME, SELF-CARE Additional Instructions: SORE THROAT: Sore throats may be caused by viruses, bacteria, or fungi. Most are due to a virus, and must get better on their own. Bacterial sore throats, particularly those due to "strep," need treatment with antibiotics. If an antibiotic is prescribed, be sure to take the medication for a full 10 days. Failure to take the antibiotic can result in complications such as rheumatic fever. Sometimes, an injection of antibiotics is given instead of pills or liquid. This single "shot" is equal in effectiveness to the oral medication. To relieve symptoms, take acetaminophen for pain. Sip clear liquids frequently, or eat popsicles or ice chips. Anesthetic sprays or lozenges may help. Make sure the air in the room is not too dry. Avoid using decongestants or antihistamines. Call the doctor if there is no improvement in two days, or if you have difficulty breathing, increasing throat pain, high fever, rash, or frequent vomiting. UPPER RESPIRATORY ILLNESS: You have a viral infection of the respiratory passages -- a "cold." This common infection causes nasal congestion, drainage, and often sore throat and cough. It is highly contagious. The disease usually lasts about 10 to 14 days. There is no "cure" for the viral infection -- it must run its course. If there is a complication, such as bacterial infection in the nose, sinuses, middle ear, or bronchial tubes, antibiotics may be required. The antibiotics won't affect the virus. Drink plenty of fluids. A humidifier may help. An expectorant medication or decongestant may make you more comfortable. Use acetaminophen or ibuprofen for fever or aches. See the doctor if fever persists over two days, if there is any significant worsening of your symptoms, or if you simply fail to improve as expected. You can use Coricidin HB for your cough cold congestion symptoms as it will not affect your blood pressure. You can also use Flonase nasal spray salt and soda solution gargles and follow-up with primary doctor. [id number] cough and cold medications will increase your blood pressure. Salt and soda solution 1 quart of water 1 tablespoon of salt 1 teaspoon of baking soda Mixed 3 ingredients together and boil for 1 minute Placed in a covered quart jar Use 1/2 ounce of cold solution to gargle 3 times a day USE OF ACETAMINOPHEN (Tylenol): Acetaminophen may be taken for pain relief or fever control. It's much safer than aspirin, offering a wider range of "safe" dosages. It is safe during . Some brand names are Tylenol, Panadol, Datril, Anacin 3, Tempra, and Liquiprin. Acetaminophen can be repeated every four hours. The following are maximum recommended dosages: >89 pounds or adults 650 mg to 900 mg Acetaminophen can be repeated every four hours. Maximum dose not to exceed 4000 mg a day. FOLLOW-UP CARE: If you have been referred to a physician for follow-up care, call the physicians office for an appointment as you were instructed or within the next two days. If you experience worsening or a significant change in your symptoms, notify the physician immediately or return to the Emergency Department at any time for re-evaluation. Forms: Elevated Blood Pressure, Return to Work Referrals: USMAN SHARMA MD [Primary Care Provider] - Follow up in 3-5 days
[2018-07-28 11:25] LABS: A TYPE INFLUENZA AG NEGATIVE (NEGATIVE); B INFLUENZA AG NEGATIVE (NEGATIVE)
[2018-07-28 12:01] VITALS: BP 140/80
== END 2018-07-28 12:03 | disposition home or self-care (01) ==
LOC: ER 09:42
DX: J02.8 Acute pharyngitis due to other specified organisms (principal); B97.89 Other viral agents as the cause of diseases classified elsewhere; R05 Cough; R50.9 Fever, unspecified; I10 Essential (primary) hypertension; M79.10 Myalgia, unspecified site; R09.81 Nasal congestion; H92.09 Otalgia, unspecified ear; R09.82 Postnasal drip; J34.89 Other specified disorders of nose and nasal sinuses; R11.10 Vomiting, unspecified; Z87.891 Personal history of nicotine dependence; Z88.8 Allergy status to other drugs, medicaments and biological substances
CPT/HCPCS: 87070; 87077; 87804; 87880; 99283

== ENCOUNTER → 2019-08-06 | Outpatient (CLI) | payer BC, MEDICARE ==
--- NOTE | 2019-08-06 12:15 | RADIOLOGY REPORT (SQ) ---
EXAM DESCRIPTION: CTA CHEST COMPLETED DATE/TIME: 08/06/2019 11:31 am REASON FOR STUDY: (R09.1)PLEURISY R09.1 PLEURISY COMPARISON: 09/06/2017. TECHNIQUE: CT scan of the chest performed using helical scanning technique with dynamic intravenous contrast injection. Images reviewed with lung, soft tissue and bone windows. Reconstructed coronal and sagittal MPR images reviewed. Additional 3 dimensional post-processing performed to develop Maximal Intensity Projection images (SC P). All images stored on PACS. All CT scanners at this facility use dose modulation, iterative reconstruction, and/or weight based d osing when appropriate to reduce radiation dose to as low as reasonably achievable (ALARA). [facility]: Dose Right [facility]: CareDose [facility]: Dose Right [facility]: Teradose 4D [facility]: [employer] CONTRAST TYPE AND DOSE: contrast/concentration: Isovue 350.00 mg/ml; Total Contrast Delivered: 68.0 ml; Total Saline Delivered: 75.0 ml Contrast bolus optimized for the pulmonary arteries. Not diagnostic for the aorta. RENAL FUNCTION: Creatinine 1.3. RADIATION DOSE: CT Rad equipment meets quality standard of care and radiation dose reduction techniq ues were employed. CTDIvol: 1.9 - 15.4 mGy. DLP: 694 mGy-cm. . LIMITATIONS: None. FINDINGS: LUNGS AND PLEURA: No masses, infiltrates, or pneumothorax. No pleural effusions or pleura l calcifications. AORTA AND GREAT VESSELS: No aneurysm. Contrast bolus not optimized for the aorta. HEART: No pericardial effusion. No significant coronary artery calcifications. PULMONARY ARTERIES: No emboli visualized in the main pulmonary arteries or the segmental branches. HILAR AND MEDIASTINAL STRUCTURES: No identified masses or abnormal nodes. HARDWARE: Spinal stimulator electrodes. UPPER ABDOMEN: No significant findings. Limited exam. THYROID AND OTHER SOFT TISSUES: No masses. No adenopathy. BONES: No acute or significant finding. 3D MIPS: Confirm above findings. OTHER: No other significant finding. IMPRESSION: NORMAL CTA OF THE CHEST. NO PULMONARY EMBOLI. COMMENT: Quality ID # [id number]: Final reports with documentation of one or more dose reduction techniques (e.g., Automated exposure control, adjustment of the mA and/or kV according to patient size, use of iterative reconstruction technique) TECHNICAL DOCUMENTATION: JOB ID: [id number] 2010 [employer]- All Rights Reserved Reading location - IP/workstation name: [email or web address]
== END ==
LOC: RAD 11:04
PROVIDERS: ATTEND Internal Medicine
DX: R09.1 Pleurisy (principal)
CPT/HCPCS: 71275; 82565

== ENCOUNTER → 2019-08-09 | Outpatient (CLI) | payer BC, MEDICARE ==
--- NOTE | 2019-08-09 12:41 | WOMENS IMAGING REPORT ---
EXAM DESCRIPTION: U/S ABDOMEN LIMITED COMPLETED DATE/TIME: 08/09/2019 12:26 pm REASON FOR STUDY: R10.11 RIGHT UPPER QUADRANT PAIN R10.11 RIGHT UPPER QUADRANT PAIN COMPARISON: None. TECHNIQUE: Dynamic and static grayscale images acquired of the abdomen and recorded on PACS. Additio nal selected color Doppler and spectral images recorded. LIMITATIONS: Limited visualization of some structures secondary to overlying bowel gas. FINDINGS: PANCREAS: Nonvisualized. LIVER: Normal echogenicity. No focal lesions. No intrahepatic ductal dilation. Borderline enlarged measuring 17.6 cm. LIVER VASCULATURE: Normal directional flow of the main portal vein and hepatic veins. GALLBLADDER: No stones. Normal wall thickness. No pericholecystic fluid. ULTRASOUND-DETECTED BRICENO'S SIGN: Negative. INTRAHEPATIC DUCTS AND COMMON DUCT: CBD and intrahepatic ducts normal caliber. No filling defects. INFERIOR VENA CAVA: Normal flow. AORTA: No aneurysm. RIGHT KIDNEY: Normal size measuring 11.6 cm. Scattered simple cysts, largest measuring up to 2.9 cm . No solid or suspicious masses. No hydronephrosis. No calcifications. PERITONEAL AND RIGHT PLEURAL SPACE: No ascites or effusions. OTHER: No other significant findings. IMPRESSION: 1. Simple renal cysts, largest measuring 2.9 cm. 2. Otherwise unremarkable right upper quadrant ultrasound as visualized. TECHNICAL DOCUMENTATION: JOB ID: [id number] 2010 [email or web address]- All Rights Reserved Reading location - IP/workstation name: [email or web address]
== END ==
LOC: WI 11:27
PROVIDERS: ATTEND Internal Medicine
DX: R10.11 Right upper quadrant pain (principal); Q61.02 Congenital multiple renal cysts
CPT/HCPCS: 76705

== ENCOUNTER → 2019-12-31 | Outpatient (CLI) | payer BC, MEDICARE ==
--- NOTE | 2019-12-31 16:10 | RADIOLOGY REPORT (SQ) ---
EXAM DESCRIPTION: CT ABD/PELVIS WITH IV ONLY IMAGES COMPLETED DATE/TIME: It in REASON FOR STUDY: R10.31 RIGHT LOWER QUADRANT PAIN R10.31 RIGHT LOWER QUADRANT PAIN COMPARISON: None. TECHNIQUE: CT scan of the abdomen and pelvis performed using helical scanning technique with dynamic intravenous contrast injection. No oral contrast. Images reviewed with lung, soft tissue, and bone windows. Reconstructed coronal and sagittal MPR images reviewed. Delayed images for evaluation of the urinary system also acquired. All images stored on PACS. All CT scanners at this facility use dose modulation, iterative reconstruction, and/or weight based d osing when appropriate to reduce radiation dose to as low as reasonably achievable (ALARA). [facility]: Dose Right [facility]: CareDose [facility]: Dose Right [facility]: Teradose 4D [facility]: [employer] CONTRAST TYPE AND DOSE: contrast/concentration: Isovue 350.00 mmol/ml; Total Contrast Delivered: 100 .0 ml; Total Saline Delivered: 72.0 ml Tear pat RENAL FUNCTION: Creatinine 1.5 RADIATION DOSE: CT Rad equipment meets quality standard of care and radiation dose reduction techniq ues were employed. CTDIvol: 18.0 - 18.0 mGy. DLP: 2074 mGy-cm.. LIMITATIONS: None. FINDINGS: LOWER CHEST: No significant findings. No nodules or infiltrates. LIVER: Normal size. No masses. No dilated ducts. SPLEEN: Normal size. No focal lesions. PANCREAS: No masses. No significant calcifications. No adjacent inflammation or peripancreatic fluid collections. Pancreatic duct not dilated. GALLBLADDER: No identified stones by CT criteria. No inflammatory changes to suggest cholecystitis. ADRENAL GLANDS: No significant masses or asymmetry. RIGHT KIDNEY AND URETER: No solid masses. No significant calcifications. No hydronephrosis or hyd roureter. LEFT KIDNEY AND URETER: No solid masses. No significant calcifications. No hydronephrosis or hydr oureter. AORTA AND VESSELS: No aneurysm. No dissection. Renal arteries, SMA, celiac without stenosis. RETROPERITONEUM: No retroperitoneal adenopathy, hemorrhage or masses. BOWEL AND PERITONEAL CAVITY: On image 56 series 2 there is a rounded well-circumscribed thick walled lesion in the mesenteric fat on the left. This is benign in appearance. No bowel mass is seen. No inflammation. APPENDIX: Normal. PELVIS: There is a reservoir for penile implant. The urinary bladder is normal. ABDOMINAL WALL: No acute finding. BONES: Surgical hardware from L4-S1. OTHER: No other significant finding. IMPRESSION: 1. There are no findings on the right side of the abdomen that explain the patient's pa in. 2. There is a 53.7 mm fat-density lesion in the mesenteric fat of uncertain etiology. This has a be nign appearance. TECHNICAL DOCUMENTATION: JOB ID: [id number] Quality ID # [id number]: Final reports with documentation of one or more dose reduction techniques (e.g., Au tomated exposure control, adjustment of the mA and/or kV according to patient size, use of iterative reconstruction technique) 2010 [employer]- All Rights Reserved Reading location - IP/workstation name: [email or web address]
== END ==
LOC: RAD 14:58
PROVIDERS: ATTEND Internal Medicine
DX: R10.31 Right lower quadrant pain (principal)
CPT/HCPCS: 74177; 82565